=== PATIENT | male | born 1955 ===

== ENCOUNTER 2019-05-23 17:45 | Inpatient (IN) | payer MEDICARE ==
[~2019-05-23] VITALS: Ht 172.7 cm; Wt 72.3 kg
[~2019-05-23 17:45] MED LIST: CEPH500 PO; CYCL10 PO; GLYB2.5 PO; HYDACE5325 PO; INSUGL100V SC; LISI5 PO; MELO7.5 PO; METF500 PO; SIMV40 PO
[2019-05-23 18:44] LABS: BASOPHILS ABSOLUTE AUTO 0.07 K/mm3 (0.00-0.23); BASOPHILS PERCENT AUTO 0 % (0-2); EOSINOPHILS PERCENT AUTO 1 % (0-6); Hematocrit 48.9 % (37.0-53.0); Hemoglobin 15.8 g/dL (13.5-17.5); IMMATURE GRAN ABSOLUTE AUTO 0.09 K/mm3 (0.00-0.10); IMMATURE GRAN PERCENT AUTO 1 % (0-1); LYMPHOCYTES ABSOLUTE AUTO 2.86 K/mm3 (0.84-5.20); LYMPHOCYTES PERCENT AUTO 18 % (21-46); MONOCYTES ABSOLUTE AUTO 1.03 K/mm3 (0.16-1.47); MONOCYTES PERCENT AUTO 7 % (4-13); Mean Corpuscular HGB 26.2 pg (26.0-34.0); Mean Corpuscular HGB Conc 32.3 g/dL (31.5-36.5); Mean Corpuscular Volume 81 fL (80-100); Mean Platelet Volume 9.3 fL (9.1-12.4); NEUTROPHILS ABSOLUTE AUTO 11.48 K/mm3 (1.96-9.15); NEUTROPHILS PERCENT AUTO 73 % (41-73); Platelet Count 351 K/mm3 (150-400); RDW Coefficient Variation 12.3 % (11.7-14.2); RDW Standard Deviation 36.7 fL (35.1-46.3); Red Blood Cell Count 6.03 M/mm3 (4.30-5.90); White Blood Cell Count 15.73 K/mm3 (4.00-11.30)
[2019-05-23 19:07] LABS: Anion Gap 7 mmol/L (6-16); Blood Urea Nitrogen 24 mg/dL (8-24); Bun/Creatinine Ratio 22.6 (12.0-20.0); CO2, Blood 26 mmol/L (21-32); Calcium, Blood 8.8 mg/dL (8.5-10.1); Chloride, Blood 95 mmol/L (98-108); Creatinine, Blood 1.06 mg/dL (0.60-1.20); Glomerular Filtration Rate >60 (60-); Glucose, Blood 592 mg/dL (70-99); Potassium, Blood 4.1 mmol/L (3.5-5.5); Sodium, Blood 128 mmol/L (136-145)
--- NOTE | 2019-05-24 04:00 | NUR ---
CBG SPOT CHECK AT 2359. NO INSULIN GIVEN AT 2100 DUE TO INSULIN COVERAGE IN ER PRIOR TO T/F TO MEDICAL FLOOR.
--- NOTE | 2019-05-24 04:04 | NUR ---
MD CONTACT: LATE ENTRY FOR 05/23/19 @ 1939. CALL PLACED TO HOSPITALIST TO REQUEST STAT ORDER FOR BLOOD CULTURE. ORDER OBTAINED/COMPLETED BY 2400.
--- NOTE | 2019-05-24 05:24 | NUR ---
SHIFT SUMMARY: A/OX4. VSS. AFEB. O2 96% ON RA. SKIN WARM AND DRY. RESPS REG, NON-LABORED. DENIES PAIN. B HANDS SWOLLEN AND ERYTHEMATOUS. L HAND SWOLLEN MORE THAN RIGHT. CHANGED BANDAGE TO LEFT MIDDLE FINGER- PHOTO TAKEN- CONTINUES TO DRAIN MODERATE AMT OF PURULENT DRAINAGE. WOUNDS ON HANDS AND FACE PHOTOGRAPHED WITH PT CONSENT. PT PLEASANT AND COOPERATIVE. MAKING NEEDS KNOWN. SLEEPING INTERMITTENTLY THROUGH THE NIGHT. HANDS BOTH ELEVATED ON PILLOWS. ABT INFUSED ORDERED. BED LOW, CALL BUTTON EXPLAINED AND WITHIN REACH.
[2019-05-24 05:28] LABS: BASOPHILS ABSOLUTE AUTO 0.05 K/mm3 (0.00-0.23); BASOPHILS PERCENT AUTO 0 % (0-2); EOSINOPHILS ABSOLUTE AUTO 0.42 K/mm3 (0.00-0.68); EOSINOPHILS PERCENT AUTO 3 % (0-6); Hematocrit 44.4 % (37.0-53.0); Hemoglobin 14.6 g/dL (13.5-17.5); IMMATURE GRAN ABSOLUTE AUTO 0.11 K/mm3 (0.00-0.10); IMMATURE GRAN PERCENT AUTO 1 % (0-1); LYMPHOCYTES ABSOLUTE AUTO 3.66 K/mm3 (0.84-5.20); LYMPHOCYTES PERCENT AUTO 27 % (21-46); MONOCYTES ABSOLUTE AUTO 0.91 K/mm3 (0.16-1.47); MONOCYTES PERCENT AUTO 7 % (4-13); Mean Corpuscular HGB 26.4 pg (26.0-34.0); Mean Corpuscular HGB Conc 32.9 g/dL (31.5-36.5); Mean Corpuscular Volume 80 fL (80-100); Mean Platelet Volume 9.6 fL (9.1-12.4); NEUTROPHILS ABSOLUTE AUTO 8.29 K/mm3 (1.96-9.15); NEUTROPHILS PERCENT AUTO 62 % (41-73); Platelet Count 348 K/mm3 (150-400); RDW Coefficient Variation 12.4 % (11.7-14.2); RDW Standard Deviation 36.4 fL (35.1-46.3); Red Blood Cell Count 5.52 M/mm3 (4.30-5.90); White Blood Cell Count 13.44 K/mm3 (4.00-11.30)
[2019-05-24 05:48] LABS: Anion Gap 7 mmol/L (6-16); Blood Urea Nitrogen 20 mg/dL (8-24); Bun/Creatinine Ratio 24.4 (12.0-20.0); CO2, Blood 24 mmol/L (21-32); Calcium, Blood 8.1 mg/dL (8.5-10.1); Chloride, Blood 104 mmol/L (98-108); Creatinine, Blood 0.82 mg/dL (0.60-1.20); Glomerular Filtration Rate >60 (60-); Glucose, Blood 288 mg/dL (70-99); Potassium, Blood 3.8 mmol/L (3.5-5.5); Sodium, Blood 135 mmol/L (136-145)
--- NOTE | 2019-05-24 16:34 | NUR ---
PT IS A/OX3, LPLEASANT AND COOPERATIVE, THE PT IS UP WITH MINIMAL ASSIST, THE PT DENIED ANY PAIN SO FAR THIS SHIFT, BATROBAN WAS APPLIED TO THE PTS FACIAL AND HAND SORES, THE PT SLEPT FOR MOST OF THE DAY WAS AWAKE FOR MEALS, HAS A GOOD APPETITE, THE PT APPEARS TO BE BREATHING EASILY ON RA AT THIS TIME, CALL LIGHT IN REACH, POSSIBLE DISCHARGE IN THE AM
--- NOTE | 2019-05-25 04:36 | NUR ---
SHIFT SUMMARY NO ACUTE CHANGES TO REPORT OVERNIGHT. HANDS REMAIN SWOLLEN AND RED WITH BLISTERS, BUT PT DENIES PAIN, SKIN DRY. BACTROBAN HELD PER DOCTOR'S LAST PROGRESS NOTES. PT HAS BEEN UP AND OOB, INDEPENDENT IN THE ROOM. AT BEDSIDE T/O THE NIGHT. IVF INFUSING ORDERED. POSS DC TODAY. WILL CONTINUE TO MONITOR AND REPORT TO ONCOMING RN.
[2019-05-25 08:25] LABS: BASOPHILS ABSOLUTE AUTO 0.05 K/mm3 (0.00-0.23); BASOPHILS PERCENT AUTO 0 % (0-2); EOSINOPHILS ABSOLUTE AUTO 0.35 K/mm3 (0.00-0.68); EOSINOPHILS PERCENT AUTO 3 % (0-6); Hematocrit 45.8 % (37.0-53.0); Hemoglobin 15.2 g/dL (13.5-17.5); IMMATURE GRAN PERCENT AUTO 1 % (0-1); LYMPHOCYTES PERCENT AUTO 20 % (21-46); MONOCYTES ABSOLUTE AUTO 0.84 K/mm3 (0.16-1.47); MONOCYTES PERCENT AUTO 7 % (4-13); Mean Corpuscular HGB 26.2 pg (26.0-34.0); Mean Corpuscular HGB Conc 33.2 g/dL (31.5-36.5); Mean Corpuscular Volume 79 fL (80-100); Mean Platelet Volume 9.2 fL (9.1-12.4); NEUTROPHILS ABSOLUTE AUTO 8.99 K/mm3 (1.96-9.15); NEUTROPHILS PERCENT AUTO 70 % (41-73); Platelet Count 360 K/mm3 (150-400); RDW Coefficient Variation 12.4 % (11.7-14.2); RDW Standard Deviation 35.2 fL (35.1-46.3); White Blood Cell Count 12.93 K/mm3 (4.00-11.30)
[2019-05-25] MEDS ORDERED: ACET325 PO (12:50)
[2019-05-25] MEDS ORDERED: BASAGLAR K100 UNIT/1 SC (12:51)
[2019-05-25] MEDS ORDERED: HUMALOG KW200 UNIT/1 SC (12:53)
[2019-05-25] MEDS ORDERED: Mupirocin22 GM TOP (12:54)
[2019-05-25] MEDS ORDERED: Amoxicillin500 M1 PO (12:56)
[2019-05-25] MEDS ORDERED: LACT PO (12:57)
--- NOTE | 2019-05-25 13:38 | NUR ---
PT DISCHARGED PT VERBALIZED UNDERSTANDING OF THE DC INSTRUCTIONS, THE PTS PERSCRIPTIONS FAXED TO [facility] IN [place], AN ATEMPT TP MAKE AN APPOINTMENT WAS MADE THE PT PCP OFFICE SAID THEY WOULD CALL HIM AT HOME, THE PT APPEARED TO BE BREATHING EASILY ON RA, THE PT WAS TRANSFERED VIA WHEELCHAIR ACCOMPANIED BY THE SUPERVISOR AIRCRAFT CLEANING
== END 2019-05-25 13:30 | disposition home or self-care (01) | DRG 872 ==
LOC: ER 17:45 → MEDS 20:50 → ENPENDDIS 05-25 12:41 → MEDS 05-25 13:30
PROVIDERS: Internal Medicine; Nurse Practitioner Acute Care; Physician Assistant; ADMIT Internal Medicine
PROC: 0H9GXZZ Drainage of Left Hand Skin, External Approach (ICD-10-PCS; principal; 2019-05-23)
DX: A40.0 Sepsis due to streptococcus, group A (principal); L02.512 Cutaneous abscess of left hand; R65.20 Severe sepsis without septic shock; E11.59 Type 2 diabetes mellitus with other circulatory complications; M79.89 Other specified soft tissue disorders; E78.5 Hyperlipidemia, unspecified; I10 Essential (primary) hypertension; E11.40 Type 2 diabetes mellitus with diabetic neuropathy, unspecified; L01.00 Impetigo, unspecified; F17.200 Nicotine dependence, unspecified, uncomplicated; Z91.14 Patient's other noncompliance with medication regimen; Z79.4 Long term (current) use of insulin; Z79.84 Long term (current) use of oral hypoglycemic drugs
CPT/HCPCS: 10060; 36415; 80048; 82947; 83036; 83605; 85025; 87070; 87075; 87147; 87205; 96365-59; 96366-59; 99284-25; J1644; J1815; J2543; J3370; J7030; J7120

== ENCOUNTER 2020-08-16 15:22 | Inpatient (IN) | payer OTHER ==
[~2020-08-16] VITALS: Ht 172.7 cm; Wt 63.0 kg
[~2020-08-16 15:22] MED LIST changes: +ACET325 PO; +Amoxicillin500 M1 PO; +BASAGLAR K100 UNIT/1 SC; +HUMALOG KW200 UNIT/1 SC; +LACT PO; +Mupirocin22 GM TOP
[2020-08-16 16:06] LABS: BASOPHILS ABSOLUTE AUTO 0.05 K/mm3 (0.00-0.23); BASOPHILS PERCENT AUTO 1 % (0-2); EOSINOPHILS PERCENT AUTO 2 % (0-6); Hematocrit 51.3 % (37.0-53.0); Hemoglobin 16.6 g/dL (13.5-17.5); IMMATURE GRAN ABSOLUTE AUTO 0.03 K/mm3 (0.00-0.10); IMMATURE GRAN PERCENT AUTO 0 % (0-1); LYMPHOCYTES ABSOLUTE AUTO 1.93 K/mm3 (0.84-5.20); LYMPHOCYTES PERCENT AUTO 22 % (21-46); MONOCYTES ABSOLUTE AUTO 0.59 K/mm3 (0.16-1.47); MONOCYTES PERCENT AUTO 7 % (4-13); Mean Corpuscular HGB 26.5 pg (26.0-34.0); Mean Corpuscular HGB Conc 32.4 g/dL (31.5-36.5); Mean Corpuscular Volume 82 fL (80-100); Mean Platelet Volume 10.8 fL (9.1-12.4); NEUTROPHILS ABSOLUTE AUTO 6.11 K/mm3 (1.96-9.15); NEUTROPHILS PERCENT AUTO 69 % (41-73); Platelet Count 299 K/mm3 (150-400); RDW Coefficient Variation 12.6 % (11.7-14.2); RDW Standard Deviation 37.2 fL (35.1-46.3); Red Blood Cell Count 6.27 M/mm3 (4.30-5.90); White Blood Cell Count 8.91 K/mm3 (4.00-11.30)
[2020-08-16 16:45] LABS: Alanine Aminotransfer (ALT/SGP 31 U/L (12-78); Albumin, Blood 2.7 g/dL (3.4-5.0); Albumin/Globulin Ratio 0.6 (0.8-1.8); Alk Phos 137 U/L (50-136); Anion Gap 10 mmol/L (6-16); Aspartate Aminotrans (AST/SGOT 38 U/L (12-37); Bilirubin, Total 0.5 mg/dL (0.1-1.0); Blood Urea Nitrogen 14 mg/dL (8-24); Bun/Creatinine Ratio 16.3 (12.0-20.0); CO2, Blood 23 mmol/L (21-32); Chloride, Blood 96 mmol/L (98-108); Creatinine, Blood 0.86 mg/dL (0.60-1.20); Globulin, Blood 4.6 g/dL (2.2-4.0); Glomerular Filtration Rate >60 (60-); Potassium, Blood 5.2 mmol/L (3.5-5.5); Sodium, Blood 129 mmol/L (136-145); Total Protein, Blood 7.3 g/dL (6.4-8.2); Troponin I <0.015 ng/mL (0.000-0.040)
[2020-08-16 16:49] LABS: Base Excess Venous -16.5 mmol/L; Bicarbonate Venous 12.7 mmol/L (24.0-30.0); PCO2 Venous 21.9 mmHg (38-42); PO2 Venous 174 mmHg (38-42); pH Blood Venous 7.28 (7.34-7.37)
[2020-08-16 17:00] LABS: U Amphetamine Screen DETECTED; U Barbituate Screen Not Detected; U Benzodiazapine Screen Not Detected; U Buprenorphine Screen Not Detected; U Cannabinoids Screen Not Detected; U Cocaine Screen Not Detected; U Methadone Screen Not Detected; U Methamphetamine Screen DETECTED; U Opiates Screen DETECTED; U Oxycodone Screen Not Detected; U Phencyclidine Screen Not Detected; U Propoxyphene Screen Not Detected
[2020-08-16 17:43] LABS: Glucose, Blood 465 mg/dL (70-99)
[2020-08-16 23:00] LABS: Influenza A, PCR Negative (NEGATIVE); Influenza B, PCR Negative (NEGATIVE); Resp Syncytial Virus, PCR Negative (NEGATIVE); SARS-Cov-2 (COVID-19) PCR, MMC Negative (NEGATIVE)
--- NOTE | 2020-08-17 03:07 | NUR ---
ADMIT NOTE PATIENT ARRIVED TO THE UNIT APPROX AROUND 2200. PATIENT VERY SLEEPY UPON ARRIVAL TO THE UNIT. PATIENT RESTING IN BED WITH EYES CLOSED. PATIENT DROWSY BUT WILL OPEN EYES SLIGHTLY AND MOAN WHEN TOUCHED OR TALKED TOO, PATIENT DOES NOT RESPOND VERBALLY BUT WILL FOLLOW SOME SIMPLY COMMANDS AT THIS TIME. PATIENT CURRENTLY APPEARS TO BE SLEEPING WELL WITH EVEN AND UNLABORED RESPIRATIONS. PATIENT APPEARS TO BE MOVING SELF ABOUT IN BED.
[2020-08-17 04:24] LABS: BASOPHILS ABSOLUTE AUTO 0.07 K/mm3 (0.00-0.23); BASOPHILS PERCENT AUTO 1 % (0-2); EOSINOPHILS ABSOLUTE AUTO 0.56 K/mm3 (0.00-0.68); EOSINOPHILS PERCENT AUTO 4 % (0-6); Hematocrit 49.1 % (37.0-53.0); Hemoglobin 15.9 g/dL (13.5-17.5); IMMATURE GRAN ABSOLUTE AUTO 0.04 K/mm3 (0.00-0.10); IMMATURE GRAN PERCENT AUTO 0 % (0-1); LYMPHOCYTES ABSOLUTE AUTO 2.57 K/mm3 (0.84-5.20); LYMPHOCYTES PERCENT AUTO 19 % (21-46); MONOCYTES ABSOLUTE AUTO 1.02 K/mm3 (0.16-1.47); MONOCYTES PERCENT AUTO 8 % (4-13); Mean Corpuscular HGB Conc 32.4 g/dL (31.5-36.5); Mean Corpuscular Volume 80 fL (80-100); Mean Platelet Volume 10.3 fL (9.1-12.4); NEUTROPHILS ABSOLUTE AUTO 8.99 K/mm3 (1.96-9.15); NEUTROPHILS PERCENT AUTO 68 % (41-73); Platelet Count 314 K/mm3 (150-400); RDW Coefficient Variation 12.6 % (11.7-14.2); RDW Standard Deviation 36.2 fL (35.1-46.3); Red Blood Cell Count 6.11 M/mm3 (4.30-5.90); White Blood Cell Count 13.25 K/mm3 (4.00-11.30)
[2020-08-17 05:05] LABS: Alanine Aminotransfer (ALT/SGP 28 U/L (12-78); Albumin, Blood 2.5 g/dL (3.4-5.0); Albumin/Globulin Ratio 0.6 (0.8-1.8); Alk Phos 119 U/L (50-136); Anion Gap 6 mmol/L (6-16); Aspartate Aminotrans (AST/SGOT 15 U/L (12-37); Bilirubin, Total 0.5 mg/dL (0.1-1.0); Blood Urea Nitrogen 13 mg/dL (8-24); Bun/Creatinine Ratio 16.5 (12.0-20.0); CO2, Blood 29 mmol/L (21-32); Calcium, Blood 8.4 mg/dL (8.5-10.1); Chloride, Blood 106 mmol/L (98-108); Creatinine, Blood 0.79 mg/dL (0.60-1.20); Globulin, Blood 4.2 g/dL (2.2-4.0); Glomerular Filtration Rate >60 (60-); Glucose, Blood 150 mg/dL (70-99); Potassium, Blood 3.6 mmol/L (3.5-5.5); Sodium, Blood 141 mmol/L (136-145); Total Protein, Blood 6.7 g/dL (6.4-8.2)
--- NOTE | 2020-08-17 07:43 | NUR ---
SHIFT SUMMARY PATIENT CONTINUES TO BE VERY DROWSY BUT WILL AWAKEN AND SLIGHTLY OPEN EYES OR GROAN WHEN TOUCHED. PATIENT HAS BEEN FIDGETING WITH LINES THROUGHOUT THE NIGHT. NO SEIZURES NOTED THROUGHOUT THE NIGHT. PATIENT APPEARS TO BE STAYING AWAKE FOR LONGER PERIODS OF TIME THIS MORNING BUT REMAINS VERY DROWSY. IV FLUIDS RUNNING PER ORDERS. REPORT GIVEN TO ONCOMING RN.
--- NOTE | 2020-08-17 13:51 | NUR ---
DESPITE CONCEALING SOLANO AND MEDICATING PT FOR AGITATION PT HAS REMOVED ATTENDS AND HAS REMOVED HIS STAT LOCK ON SOLANO. PT HAS BLOOD IN URINE WHEN I ASSUMED PT CARE THIS AM, AFTER HE PULLED ON SOLANO HAS MORE BLOOD NOTED IN SOLANO LINE. PT RECIEVED ATIVAN IVP FOR AGITATION. LINES ARE CONCEALED BY RETURNING PANTS TO PT, TUCKING GOWN INTO PANTS, AND REPLACING STAT LOCK
--- NOTE | 2020-08-17 18:35 | NUR ---
SHIFT NOTE PT AGITATED T/O THE DAY. WHEN AWAKE IS VERY AGGRESIVE AND THREATENS STAFF WITH HIS PENIS. PER S/O PT IS AGGRESSIVE AT BASELINE. PT AWAKENS TO VERBAL STIMULI. NS INFUSING. NO SZ ACTIVITY TODAY. PT REMOVED HIS RT HAND IV THIS EVENING WHICH WAS REPLCAED, WHILE REPLACING IV PT BECAME AGGRESIVE, KICKING AND HITTING AT STAFF, IV WAS ESTABLISHED WITHOUT STAFF OR PT INJURY. SOLANO CONTINUES TO DRAIN BLOODY URINE SINCE PULLING ON HIS CATH.
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
--- NOTE | 2020-08-18 03:10 | NUR ---
PATIENT WAS ATTEMPTING TO GET OUT OF BED; FALL RISK; PATIENT ATTEMPTING TO SWING AT STAFF MEMBERS. STAFF ASKED PATIENT FOR FINGER TO GET PULSE OX AND PATIENT PUT MIDDLE FINGER UP.
[2020-08-18 05:00] LABS: BASOPHILS ABSOLUTE AUTO 0.05 K/mm3 (0.00-0.23); BASOPHILS PERCENT AUTO 1 % (0-2); EOSINOPHILS ABSOLUTE AUTO 0.51 K/mm3 (0.00-0.68); EOSINOPHILS PERCENT AUTO 5 % (0-6); Hematocrit 50.3 % (37.0-53.0); Hemoglobin 16.5 g/dL (13.5-17.5); IMMATURE GRAN ABSOLUTE AUTO 0.04 K/mm3 (0.00-0.10); IMMATURE GRAN PERCENT AUTO 0 % (0-1); LYMPHOCYTES ABSOLUTE AUTO 1.92 K/mm3 (0.84-5.20); LYMPHOCYTES PERCENT AUTO 17 % (21-46); MONOCYTES PERCENT AUTO 8 % (4-13); Mean Corpuscular HGB 26.4 pg (26.0-34.0); Mean Corpuscular HGB Conc 32.8 g/dL (31.5-36.5); Mean Corpuscular Volume 80 fL (80-100); Mean Platelet Volume 10.4 fL (9.1-12.4); NEUTROPHILS ABSOLUTE AUTO 7.68 K/mm3 (1.96-9.15); NEUTROPHILS PERCENT AUTO 69 % (41-73); Platelet Count 303 K/mm3 (150-400); RDW Coefficient Variation 12.7 % (11.7-14.2); RDW Standard Deviation 36.4 fL (35.1-46.3); Red Blood Cell Count 6.26 M/mm3 (4.30-5.90)
[2020-08-18 05:23] LABS: Anion Gap 8 mmol/L (6-16); Blood Urea Nitrogen 11 mg/dL (8-24); Bun/Creatinine Ratio 14.4 (12.0-20.0); CO2, Blood 27 mmol/L (21-32); Chloride, Blood 103 mmol/L (98-108); Creatinine, Blood 0.76 mg/dL (0.60-1.20); Glomerular Filtration Rate >60 (60-); Glucose, Blood 128 mg/dL (70-99); Potassium, Blood 3.9 mmol/L (3.5-5.5); Sodium, Blood 138 mmol/L (136-145)
--- NOTE | 2020-08-18 06:29 | NUR ---
PATIENT HAS BEEN RESTING SINCE LAST DOSE OF IV ATIVAN. NO OTHER ACUTE CHANGES TO REPORT.
--- NOTE | 2020-08-18 18:40 | NUR ---
PT SUMMARY: PT HAS BEEN LETHARGIC AND SLEEPING MOST OF THE SHIFT, WAS NOT ABLE TO EAT OR DRINK ANY OF HIS BREAKFAST AND LUNCH, RESPONDS TO VERBAL STIMULI BUT WAS NOT AWAKE ENOUGH TO TAKE ANYTHING P.O., PT BARELY TOOK HIS PO MEDS WAS CRUSHED IN APPLESAUCE BUT WAS ABLE TO SWALLOW SLOWLY. VITALS STABLE, AFEBRILE, REMAINS CONFUSED ATTEMPTED TO GET OUT OF BED AND WAS COMBATIVE AT ONE TIME WHEN CAME IN TO VISIT BUT PT WAS ABLE TO CALM DOWN. BROUGHT IN SNAPPLE JUICE AND PT WAS ABLE TO DRINK ATLEAST A BOTTLE, PT'S CBG WAS UP TO 300 BEFORE DINNER TIME, WAS INFORMED TO NOTIFY INFECTIOUS DISEASE PHYSICIAN/RN BEFORE GIVING PT ANY SWEET JUICES/FOOD, AGREEABLE. NS STARTED AT 75MLS/HR URINE WAS DARK YELLOW THIS AM SINCE PT WAS NOT ABLE TO EAT/DRINK ANYTHING, URINE STARTED GETTING RED PT WAS PULLING ON HIS CATHETER. PT RECIEVED A PARTIAL BED BATH BEFORE THE END OF SHIFT SINCE PT HAD INCONTINENT LARGE BM IN BED. PT WAS ABLE TO FINISH HIS DINNER WHEN HE WAS MORE ALERT AND TALKING THIS EVENING, PT THEN FALLS BACK TO SLEEP AFTER EATING DINNER, PT IS NOW CALM AND RESTING NO SEIZURE EPISODE NOTED FOR THE SHIFT, WILL MONITOR UNTIL END OF SHIFT
--- NOTE | 2020-08-19 04:07 | NUR ---
SHIFT SUMMARY PT HAS BEEN PLESANT AND COOPERATIVE WITH CARE WITH THIS SHIFT. AWAKING BREIFLY TO SHIFT AROUND IN BED, BUT QUICKLY FALLS BACK TO SLEEP. FOLLOWS DIRECTIONS AND ANSWERS MY QUESTIONS APPROPRIATELY. HE HAS BEEN ABLE TO MAKE NEEDS KNOWN. VITALS STABLE. NO ACUTE CHANGES TO REPORT OVERNIGHT. BED IN LOWEST POSITION, CALL LIGHT WITHIN REACH.
[2020-08-19] MEDS ORDERED: Prinivil10 MG PO (09:27)
[2020-08-19] MEDS ORDERED: METF500 PO (09:28)
[2020-08-19] MEDS ORDERED: LEVE500 PO (09:28)
--- NOTE | 2020-08-19 11:59 | NUR ---
PT DISCHARGED TO HOME TODAY WITH DISCHARGE ORDERS. PT ALERT AND ORIENTED AT BASELINE, BLADDER TRAINING WAS DONE THIS AM, CATHETER DC'D, PT WAS WAS ABLE TO VOID IN URINAL PRIOR TO DISCHARGE. PT WAS ABLE TO DRESS HIMSELF UP AND AMBULATE TO WHEELCHAIR FOR TRANSPORT. VITALS HAS BEEN STABLE. DENIES ANY PAIN FOR THE SHIFT. DISCHARGE INSTRUCTIONS DISCLOSED WITH PT, NEW PRESCRIPTION SENT TO [facility] PER PT REQUESTS SINCE [facility] IS CLOSED. FRIEND MICHELE CAME IN TO CARPET LAYER HELPER PT. ALL BELONGINGS SENT WITH PT. PT ACCOMPANIED BY PCT VIA WHEELCHAIR FOR TRANSPORT.
== END 2020-08-19 11:39 | disposition home or self-care (01) | DRG 101 ==
LOC: ER 15:22 → ERHOLD 17:50 → PCU 22:12
PROVIDERS: Emergency Medicine; Physician Assistant; ADMIT Internal Medicine
DX: G40.001 Localization-related (focal) (partial) idiopathic epilepsy and epileptic syndromes with seizures of localized onset, not intractable, with status epilepticus (principal); E87.2 Acidosis; Z79.4 Long term (current) use of insulin; E11.40 Type 2 diabetes mellitus with diabetic neuropathy, unspecified; I10 Essential (primary) hypertension; E11.65 Type 2 diabetes mellitus with hyperglycemia; D72.829 Elevated white blood cell count, unspecified; F15.10 Other stimulant abuse, uncomplicated; Z91.14 Patient's other noncompliance with medication regimen; Z20.822 Contact with and (suspected) exposure to COVID-19
CPT/HCPCS: 0241U; 36415; 51702; 70450; 80048; 80053; 82010; 82550; 82803; 82947; 83605; 84146; 84484; 85025; 87040; 93005; 93010; 95819; 96361-59; 96365-59; 96366-59; 96367-59; 96368; 96375-59; 99285-25; A9270; G0008; G0480; J0696; J1650; J1815; J1953; J2060; J3370; J7030; J7050; Q2038

== ENCOUNTER 2021-07-25 18:34 | Inpatient (IN) | payer MEDICARE ==
[~2021-07-25] VITALS: Ht 172.7 cm; Wt 69.6 kg
[~2021-07-25 18:34] MED LIST changes: +LEVE500 PO; +Prinivil10 MG PO
[2021-07-25 20:29] LABS: BASOPHILS ABSOLUTE AUTO 0.05 K/mm3 (0.00-0.23); BASOPHILS PERCENT AUTO 0 % (0-2); EOSINOPHILS ABSOLUTE AUTO 0.19 K/mm3 (0.00-0.68); EOSINOPHILS PERCENT AUTO 2 % (0-6); Hemoglobin 14.1 g/dL (13.5-17.5); IMMATURE GRAN ABSOLUTE AUTO 0.06 K/mm3 (0.00-0.10); IMMATURE GRAN PERCENT AUTO 1 % (0-1); LYMPHOCYTES ABSOLUTE AUTO 1.77 K/mm3 (0.84-5.20); LYMPHOCYTES PERCENT AUTO 14 % (21-46); MONOCYTES ABSOLUTE AUTO 0.96 K/mm3 (0.16-1.47); MONOCYTES PERCENT AUTO 8 % (4-13); Mean Corpuscular HGB 25.9 pg (26.0-34.0); Mean Corpuscular HGB Conc 32.8 g/dL (31.5-36.5); Mean Corpuscular Volume 79 fL (80-100); Mean Platelet Volume 9.6 fL (9.1-12.4); NEUTROPHILS ABSOLUTE AUTO 9.42 K/mm3 (1.96-9.15); NEUTROPHILS PERCENT AUTO 76 % (41-73); Platelet Count 414 K/mm3 (150-400); RDW Coefficient Variation 12.7 % (11.7-14.2); RDW Standard Deviation 35.9 fL (35.1-46.3); Red Blood Cell Count 5.44 M/mm3 (4.30-5.90); White Blood Cell Count 12.45 K/mm3 (4.00-11.30)
[2021-07-25 21:10] LABS: Albumin, Blood 2.2 g/dL (3.4-5.0); Albumin/Globulin Ratio 0.4 (0.8-1.8); Bilirubin, Total 0.3 mg/dL (0.1-1.0); Calcium, Blood 9.1 mg/dL (8.5-10.1); Creatinine, Blood 1.31 mg/dL (0.60-1.20); Globulin, Blood 5.1 g/dL (2.2-4.0); Potassium, Blood 4.8 mmol/L (3.5-5.5); Total Protein, Blood 7.3 g/dL (6.4-8.2)
[2021-07-26 03:21] LABS: Influenza A, PCR NEGATIVE (NEGATIVE); Influenza B, PCR NEGATIVE (NEGATIVE); Resp Syncytial Virus, PCR NEGATIVE (NEGATIVE); SARS-Cov-2 (COVID-19) PCR, MMC NEGATIVE (NEGATIVE)
[2021-07-26 13:00] LABS: U Amphetamine Screen DETECTED; U Barbituate Screen Not Detected; U Benzodiazapine Screen Not Detected; U Buprenorphine Screen Not Detected; U Cannabinoids Screen Not Detected; U Cocaine Screen Not Detected; U Methadone Screen Not Detected; U Methamphetamine Screen DETECTED; U Opiates Screen Not Detected; U Oxycodone Screen Not Detected; U Phencyclidine Screen Not Detected; U Propoxyphene Screen Not Detected
--- NOTE | 2021-07-26 18:09 | NUR ---
SHIFT SUMMARY PATIENT NEW ADMIT FROM ER. GANGRENE WOUNDS TO BILAT FEET. ORIENTED BUT SLEEPY THROUGHOUT SHIFT. BILAT FEET AND GREAT TOES WITH LARGE OPEN BLISTERS, FEET RED AND SWOLLEN. DR MARKHAM CONSULTED FOR PODIATRY AND DR VILLEGAS FOR VASCULAR. DR VILLEGAS ORDERED DOPPLER AND ART US WITH RESULTS SHOWING GOOD VASCULAR STATUS TO LE AND FEET. DR MARKHAM TOOK PATIENT TO SURGERY FOR AMPUTATION OF LEFT GREAT TOE AT 1800. PATIENT'S SPOUSE WAS PRESENT IN ROOM DURING AFTERNOON. NPO THIS SHIFT, IV FLUIDS AND ABX RUNNING. USING URINAL AT BEDSIDE. DM II WITH CHEMSTICK Q6 HOUR AND INSULIN COVERAGE PER SLIDING SCALE. WILL REPORT TO AIRPLANE FUELER RN.
--- NOTE | 2021-07-26 18:24 | NUR ---
07/26/211823 Ramírez Barnett PATIENT ENTERED OR ON SCHEDULED VANCO, NEXT DOSE DUE LATER THIS EVENING. PER DR. MARTINEZ NO PAS STOCKING DUE TO OPEN SORES ON BILATERAL LEGS.
--- NOTE | 2021-07-26 18:25 | NUR ---
REPORT OFF TO CHEMO SERRANO. BRITNEY
--- NOTE | 2021-07-26 18:26 | NUR ---
ADMIT TO [facility] STARTED REPORT TO CHEMO AT [id number]
--- NOTE | 2021-07-26 20:15 | NUR ---
PATIENT RETURNED TO FLOOR AT 2004. ALERT, EASILY AROUSABLE. VS STABLE. DRESSING CLEAN DRY AND INTACT TO LEFT FOOT. CURRENTLY RESTING PEACEFULLY IN BED. SAFETY MAINTAINED.
[2021-07-27 03:49] LABS: Hematocrit 39.7 % (37.0-53.0); Hemoglobin 12.8 g/dL (13.5-17.5); Mean Corpuscular HGB 25.8 pg (26.0-34.0); Mean Corpuscular HGB Conc 32.2 g/dL (31.5-36.5); Mean Corpuscular Volume 80 fL (80-100); Mean Platelet Volume 9.3 fL (9.1-12.4); Platelet Count 362 K/mm3 (150-400); RDW Coefficient Variation 12.8 % (11.7-14.2); RDW Standard Deviation 36.7 fL (35.1-46.3); Red Blood Cell Count 4.97 M/mm3 (4.30-5.90); White Blood Cell Count 13.93 K/mm3 (4.00-11.30)
[2021-07-27 04:05] LABS: Bun/Creatinine Ratio 17.6 (12.0-20.0); Calcium, Blood 8.6 mg/dL (8.5-10.1); Creatinine, Blood 1.42 mg/dL (0.60-1.20); Potassium, Blood 4.1 mmol/L (3.5-5.5)
--- NOTE | 2021-07-27 05:37 | NUR ---
ALERT AND ORIENTED. FENTANYL 12.5MCG GIVEN X'S 2 DUE TO LEFT FOOT PAIN, EFFECTIVE RELIEF. DRESSING CLEAN DRY AND INTACT TO LEFT FOOT. SLEPT WELL THROUGH NIGHT. SAFETY MAINTAINED, CALL LERNER IN REACH
--- NOTE | 2021-07-27 18:04 | NUR ---
PATIENT CURRENTLY SITTING UP IN CHAIR WITH FEET ELEVATED. NO SIGNS OR SYMPTOMS ACUTE DISTRESS NOTED AT THIS TIME. CALL LIGHT AND WATER IN EASY REACH. ABLE TO MAKE NEEDS AND WANTS KNOWN. DRESSING TO LEFT FOOT CDI. COMPLAINS OF LEFT TOE PAIN, MEDICATED PER ORDERS SEE EMAR. IV ANTIBIOTICS CONTINUE. WILL MONITOR.
[2021-07-28 05:01] LABS: Bun/Creatinine Ratio 15.9 (12.0-20.0); Calcium, Blood 8.6 mg/dL (8.5-10.1); Creatinine, Blood 1.32 mg/dL (0.60-1.20)
--- NOTE | 2021-07-28 05:40 | NUR ---
PATIENT CURRENTLY RESTING IN BED. WHEN ATTEMPTING TO TALK TO PATIENT, HE CONSTANTLY SAYS NO. PATIENT AGITATED WHEN ATTEMPTING TO GET VS, PULLS HAND AWAY. ABLE TO GET VS FROM RADIAL AREA WITHOUT DIFFICULTY. SOLANO IN PLACE, PATENT, IV INTACT TO JOSELUIS. ABDUCTOR WEDGE IN PLACE. SAFETY MAINTAINED.
--- NOTE | 2021-07-28 06:17 | NUR ---
ALERT X'S 3. MEDICATED FOR PAIN MANAGEMENT THROUGH NIGHT, EFFECTIVE. NO ACUTE DISTRESS, RESPIRATIONS EVEN AND UNALBORED. DRESSING INTACT TO LEFT FOOT. SLEPT WELL THROUGH NIGHT, SAFETY MAINTAINED.
--- NOTE | 2021-07-28 15:45 | NUR ---
CALL TO DR. BISHOP DAVIS AND MD STATES TO CHANGE DRSG. PRIOR TO DC, LEAVE FELICIANO DRAIN IN, AND ACCESS FOR PUS, DRAINAGE. DRSG. CHANGE DONE, PT. TOLERATE WELL. FELICIANO DRAIN INTACT, NO FRESH DRAINAGE OR PUS NOTED, OLD DRY SEROUSANG. NEW DRSG. APPLIED, ABD, 4X4,KERLEX AND AUBREY WRAP. DR. PAYTON IN TO SEE PT.
--- NOTE | 2021-07-28 16:14 | NUR ---
PATIENT DISCHARGED TO HOME AT THIS TIME. IS HERE TO TAKE PT. HOME. REVIEWED AND EXPLAINED DC INSTRUCTIONS TO PATIENT AND , BOTH VERBALIZE UNDERSTANDING OF IMPORTANCE IN TAKING METFORMIN, NON WT. BEARING STATUS OF LEFT FOOT, AND FOLLOW UP WITH WOUND CARE AND VP OF GLOBAL MARKETING IMMEDIATELY TO MAKE APPT.-PRESCRIPTIONS CALLED TO PT. PHARMACY IN [place] AND HARD COPY OF PAIN MED SCRIPT GIVEN TO . DISCUSSED NON WT. BEARING AND MOBILITIY STATUS, FEELS SECURE AND COMFORTABLE TAKING PT. HOME "OUR SPACE IS SMALL AND I WILL GET HIM A WALKER" GAIT BELT GIVEN. PATIENT STATES COMFORT IN GOING HOME AND VERBALIZE UNDERSTANDING OF DC INSTRUCTIONS. W/C TO EXIT WITH PERSONAL BELONGINGS AND COPY OF DC INSTRUCTIONS. IV LEFT WRIST REMOVED.
== END 2021-07-28 16:28 | disposition home or self-care (01) | DRG 255 ==
LOC: ER 18:34 → ERHOLD 07-26 03:01 → SURS 07-26 03:01
PROVIDERS: Emergency Medicine; Family Medicine; Internal Medicine; Physician Assistant; Podiatrist Foot & Ankle Surgery; ADMIT Internal Medicine
PROC: 0Y6Q0Z3 Detachment at Left 1st Toe, Low, Open Approach (ICD-10-PCS; principal; 2021-07-26 16:50)
DX: E11.52 Type 2 diabetes mellitus with diabetic peripheral angiopathy with gangrene (principal); A48.0 Gas gangrene; N17.9 Acute kidney failure, unspecified; E11.42 Type 2 diabetes mellitus with diabetic polyneuropathy; I10 Essential (primary) hypertension; F17.210 Nicotine dependence, cigarettes, uncomplicated; Z20.822 Contact with and (suspected) exposure to COVID-19; E78.5 Hyperlipidemia, unspecified; F15.10 Other stimulant abuse, uncomplicated; Z90.89 Acquired absence of other organs; Z98.52 Vasectomy status; Z91.14 Patient's other noncompliance with medication regimen; Z79.84 Long term (current) use of oral hypoglycemic drugs; Z79.899 Other long term (current) drug therapy
CPT/HCPCS: 0241U; 36415; 73700; 80048; 80053; 82947; 83605; 83880; 84145; 85025; 85027; 87040; 87086; 88305; 90471; 90686; 90714; 93005; 93010; 93922; 96365; 96372; 96375; 99285-25; A9270; J1644; J1815; J2405; J2543; J2704; J3010; J3370; J7030; J7120

== ENCOUNTER 2021-08-02 06:07 | Day surgery (SDC) | payer MEDICARE | END 2021-08-02 23:40 | disposition home or self-care (01) | LOC: WOUND 06:07 | DX: E11.621 Type 2 diabetes mellitus with foot ulcer (principal); L97.529 Non-pressure chronic ulcer of other part of left foot with unspecified severity; L97.522 Non-pressure chronic ulcer of other part of left foot with fat layer exposed; L97.519 Non-pressure chronic ulcer of other part of right foot with unspecified severity; F17.210 Nicotine dependence, cigarettes, uncomplicated; E11.52 Type 2 diabetes mellitus with diabetic peripheral angiopathy with gangrene; S98.112A Complete traumatic amputation of left great toe, initial encounter; F15.20 Other stimulant dependence, uncomplicated; I70.261 Atherosclerosis of native arteries of extremities with gangrene, right leg; X58.XXXA Exposure to other specified factors, initial encounter | CPT/HCPCS: G0463 ==

== ENCOUNTER 2021-08-09 05:18 | Day surgery (SDC) | payer MEDICARE | END 2021-08-09 12:00 | disposition home or self-care (01) | LOC: WOUND 05:18 | DX: E11.621 Type 2 diabetes mellitus with foot ulcer (principal); L97.528 Non-pressure chronic ulcer of other part of left foot with other specified severity; L97.518 Non-pressure chronic ulcer of other part of right foot with other specified severity; E11.52 Type 2 diabetes mellitus with diabetic peripheral angiopathy with gangrene; S98.112D Complete traumatic amputation of left great toe, subsequent encounter; F15.20 Other stimulant dependence, uncomplicated; I70.261 Atherosclerosis of native arteries of extremities with gangrene, right leg; E11.40 Type 2 diabetes mellitus with diabetic neuropathy, unspecified; F17.210 Nicotine dependence, cigarettes, uncomplicated | CPT/HCPCS: A9270; G0463 ==

== ENCOUNTER 2021-08-14 01:28 | Day surgery (SDC) | payer MEDICARE | END 2021-08-14 23:02 | disposition home or self-care (01) | LOC: WOUND 01:28 | DX: E11.621 Type 2 diabetes mellitus with foot ulcer (principal); L97.529 Non-pressure chronic ulcer of other part of left foot with unspecified severity; L97.519 Non-pressure chronic ulcer of other part of right foot with unspecified severity; T87.89 Other complications of amputation stump; Y83.8 Other surgical procedures as the cause of abnormal reaction of the patient, or of later complication, without mention of misadventure at the time of the procedure; E11.52 Type 2 diabetes mellitus with diabetic peripheral angiopathy with gangrene; I70.261 Atherosclerosis of native arteries of extremities with gangrene, right leg | CPT/HCPCS: A9270; G0463 ==

== ENCOUNTER 2021-08-28 01:04 | Day surgery (SDC) | payer MEDICARE | END 2021-08-28 23:30 | disposition home or self-care (01) | LOC: WOUND 01:04 | DX: E11.621 Type 2 diabetes mellitus with foot ulcer (principal); L97.529 Non-pressure chronic ulcer of other part of left foot with unspecified severity; L97.519 Non-pressure chronic ulcer of other part of right foot with unspecified severity; E11.52 Type 2 diabetes mellitus with diabetic peripheral angiopathy with gangrene; I70.261 Atherosclerosis of native arteries of extremities with gangrene, right leg; S98.112D Complete traumatic amputation of left great toe, subsequent encounter; F15.20 Other stimulant dependence, uncomplicated; E11.40 Type 2 diabetes mellitus with diabetic neuropathy, unspecified; F17.210 Nicotine dependence, cigarettes, uncomplicated | CPT/HCPCS: G0463 ==

== ENCOUNTER 2021-09-11 01:06 | Day surgery (SDC) | payer MEDICARE | END 2021-09-11 22:42 | disposition home or self-care (01) | LOC: WOUND 01:06 | DX: E11.621 Type 2 diabetes mellitus with foot ulcer (principal); L97.522 Non-pressure chronic ulcer of other part of left foot with fat layer exposed; L97.512 Non-pressure chronic ulcer of other part of right foot with fat layer exposed; F17.210 Nicotine dependence, cigarettes, uncomplicated; E11.52 Type 2 diabetes mellitus with diabetic peripheral angiopathy with gangrene; S98.112A Complete traumatic amputation of left great toe, initial encounter; F12.20 Cannabis dependence, uncomplicated; I70.261 Atherosclerosis of native arteries of extremities with gangrene, right leg ==

== ENCOUNTER 2021-09-18 06:41 | Day surgery (SDC) | payer MEDICARE ==
[~2021-09-18] VITALS: Ht 172.7 cm; Wt 68.0 kg
[2021-09-18] MEDS ORDERED: GLIP5 PO (06:58)
--- NOTE | 2021-09-18 09:55 | NUR ---
PT BACK FROM PROCEDURE ROOM. PT LAYING FLAT IN BED WITH EYES CLOSED AND SNORING RESPIRATIONS. PT WITH L FEM ACCESS WITH SUCCESSFUL ANGIOSEAL IN PLACE. NO BLEEDING, OOZING OR HEMATOMA NOTED. VSS. WILL CONTINUE TO MONITOR.
--- NOTE | 2021-09-18 12:08 | NUR ---
PT EATING LUNCH WITH HELP FROM FRIEND. NO BLEEDING OOZING OR HEMATOMA NOTED FROM R FEM SITE. VSS. PT SAT UP IN BED AND WILL PLAN TO DC IF NO BLEEDING, OCCURS.
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
== END 2021-09-18 12:45 | disposition home or self-care (01) ==
LOC: MHTC 06:41
DX: E08.42 Diabetes mellitus due to underlying condition with diabetic polyneuropathy (principal); I70.213 Atherosclerosis of native arteries of extremities with intermittent claudication, bilateral legs
CPT/HCPCS: 76937; 85347; 99152; 99153; C1725; C1760; C1769; C1885; C1887; C1894; J1644; J2250; J3010; J7030; J7050; Q9967

== ENCOUNTER 2021-09-20 01:16 | Day surgery (SDC) | payer MEDICARE ==
[~2021-09-20 01:16] MED LIST changes: +GLIP5 PO
== END 2021-09-20 22:45 | disposition home or self-care (01) ==
LOC: WOUND 01:16
DX: E11.621 Type 2 diabetes mellitus with foot ulcer (principal); L97.529 Non-pressure chronic ulcer of other part of left foot with unspecified severity; L97.519 Non-pressure chronic ulcer of other part of right foot with unspecified severity; T87.89 Other complications of amputation stump; E11.40 Type 2 diabetes mellitus with diabetic neuropathy, unspecified; F17.210 Nicotine dependence, cigarettes, uncomplicated; E11.51 Type 2 diabetes mellitus with diabetic peripheral angiopathy without gangrene; I70.261 Atherosclerosis of native arteries of extremities with gangrene, right leg; F15.20 Other stimulant dependence, uncomplicated; Y83.8 Other surgical procedures as the cause of abnormal reaction of the patient, or of later complication, without mention of misadventure at the time of the procedure
CPT/HCPCS: G0463

== ENCOUNTER 2021-10-04 02:39 | Day surgery (SDC) | payer MEDICARE ==
[2021-10-09] MEDS ORDERED: CLOP75 PO (10:49)
[2021-10-09] MEDS ORDERED: XARELTO2.5 M1 PO (10:50)
[2021-11-25] MEDS ORDERED: CLOP75 PO (06:27)
[2021-11-25] MEDS ORDERED: ATOR40TA PO (06:27)
== END 2021-10-04 23:14 | disposition home or self-care (01) ==
LOC: WOUND 02:39
DX: E11.621 Type 2 diabetes mellitus with foot ulcer (principal); L97.522 Non-pressure chronic ulcer of other part of left foot with fat layer exposed; L97.519 Non-pressure chronic ulcer of other part of right foot with unspecified severity; E11.52 Type 2 diabetes mellitus with diabetic peripheral angiopathy with gangrene; I96 Gangrene, not elsewhere classified; E11.40 Type 2 diabetes mellitus with diabetic neuropathy, unspecified; Z89.412 Acquired absence of left great toe
CPT/HCPCS: U0003

== ENCOUNTER 2021-10-11 03:07 | Day surgery (SDC) | payer MEDICARE ==
[~2021-10-11 03:07] MED LIST changes: +CLOP75 PO; +XARELTO2.5 M1 PO
== END 2021-10-11 22:49 | disposition home or self-care (01) ==
LOC: WOUND 03:07
DX: E11.621 Type 2 diabetes mellitus with foot ulcer (principal); L97.526 Non-pressure chronic ulcer of other part of left foot with bone involvement without evidence of necrosis; E11.52 Type 2 diabetes mellitus with diabetic peripheral angiopathy with gangrene; I96 Gangrene, not elsewhere classified; E11.40 Type 2 diabetes mellitus with diabetic neuropathy, unspecified
CPT/HCPCS: G0463

== ENCOUNTER 2021-10-18 01:47 | Day surgery (SDC) | payer MEDICARE | END 2021-10-18 22:49 | disposition home or self-care (01) | LOC: WOUND 01:47 | DX: E11.621 Type 2 diabetes mellitus with foot ulcer (principal); L97.526 Non-pressure chronic ulcer of other part of left foot with bone involvement without evidence of necrosis; L97.518 Non-pressure chronic ulcer of other part of right foot with other specified severity; E11.52 Type 2 diabetes mellitus with diabetic peripheral angiopathy with gangrene; I96 Gangrene, not elsewhere classified; Z89.422 Acquired absence of other left toe(s) | CPT/HCPCS: A9270; G0463 ==

== ENCOUNTER 2021-10-28 10:58 | Day surgery (SDC) | payer MEDICARE ==
[~2021-10-28] VITALS: Ht 172.7 cm; Wt 66.0 kg
--- NOTE | 2021-10-28 14:27 | NUR ---
PATIENT RETURNED FROM THE CATHLAB. PATEINT PLACED ON THE MONITOR AND SBAR RECEIVED FROM BRITNEY COREAS AND OCTOBER, RT. RIGHT GROIN CHECKED. ANGIOSEAL. DRESSING CDI. DOPPLER PULSES NOTED. LEFT FOOT WITH PURPLE TONE TO THE UPPER TOE PORTION OF THE FOOT. WILL CONTINUE TO MONITOR.
--- NOTE | 2021-10-28 15:03 | NUR ---
PATIENT WAKING UP MORE AND TEXTING GIRLFRINED.
--- NOTE | 2021-10-28 15:08 | NUR ---
GIRLFRIEND AT THE BEDSIDE. LUNCH SERVED. PATIENT MORE AWAKE. VVS. PAIN NOTED TO TEJA LEFT FOOT. UPDATE GIRLFRIEND THAT ADDITIONAL PROCEDURE WILL BE REQUIRED AND THAT THIS WILL BE SCHEDULED THROUGH DR. APONTE OFFICE.
--- NOTE | 2021-10-28 16:22 | NUR ---
PATIENT UP OFF THE MONITOR, HAMMER SHOP SUPERVISOR HERE. PATIENTPIV REMOVED AND CATH TIP INTACT. PRESSURE DRESSING APPLIED. RIGHT GROIN SITE STABLE WITH ANGIOSEAL IN PLACE AND CHG TEGADERM IN PLACE. PATEINT DRESSING SELF. LEFT FOOT REDRESSED WITH TELFA AND GAUZE. TWO SOCKS LOOSELY PLACE (NO SHOE TO THAT FOOT). REVIEWED DISCHARGE INSTRUCTIONS WITH THE PATIENT AND THE FAMILY MEMBER. ALL QUESTIONS ANSWERED.
--- NOTE | 2021-10-28 16:32 | NUR ---
PATEINT DISCAHRGED HOME VIA WHEELCHAIR WITH NUT GRINDER.
== END 2021-10-28 16:59 | disposition home or self-care (01) ==
LOC: MHTC 10:58
DX: E11.51 Type 2 diabetes mellitus with diabetic peripheral angiopathy without gangrene (principal); I70.245 Atherosclerosis of native arteries of left leg with ulceration of other part of foot; E11.621 Type 2 diabetes mellitus with foot ulcer; L97.522 Non-pressure chronic ulcer of other part of left foot with fat layer exposed; I10 Essential (primary) hypertension; F17.210 Nicotine dependence, cigarettes, uncomplicated; Z89.412 Acquired absence of left great toe; Z86.73 Personal history of transient ischemic attack (TIA), and cerebral infarction without residual deficits
CPT/HCPCS: 75625; 75716; 75774; 76937; 85347; 99152; 99153; C1725; C1760; C1769; C1887; C1894; C9772; J1644; J2250; J3010; J7030; J7050; Q9967

== ENCOUNTER 2021-11-11 01:21 | Day surgery (SDC) | payer MEDICARE | END 2021-11-11 23:04 | disposition home or self-care (01) | LOC: WOUND 01:21 | DX: E11.621 Type 2 diabetes mellitus with foot ulcer (principal); L97.526 Non-pressure chronic ulcer of other part of left foot with bone involvement without evidence of necrosis; E11.52 Type 2 diabetes mellitus with diabetic peripheral angiopathy with gangrene; E11.40 Type 2 diabetes mellitus with diabetic neuropathy, unspecified; Z89.412 Acquired absence of left great toe | CPT/HCPCS: G0463 ==

== ENCOUNTER 2021-11-22 00:28 | Day surgery (SDC) | payer MEDICARE ==
[2021-11-25] MEDS ORDERED: ATOR40TA PO (06:27)
[2021-11-25] MEDS ORDERED: CLOP75 PO (06:27)
== END 2021-11-22 22:49 | disposition home or self-care (01) ==
LOC: WOUND 00:28
DX: E11.621 Type 2 diabetes mellitus with foot ulcer (principal); L97.526 Non-pressure chronic ulcer of other part of left foot with bone involvement without evidence of necrosis; E11.52 Type 2 diabetes mellitus with diabetic peripheral angiopathy with gangrene; E11.40 Type 2 diabetes mellitus with diabetic neuropathy, unspecified
CPT/HCPCS: G0463

== ENCOUNTER 2021-12-06 01:12 | Day surgery (SDC) | payer MEDICARE ==
[~2021-12-06 01:12] MED LIST changes: +ATOR40TA PO
== END 2021-12-06 22:47 | disposition home or self-care (01) ==
LOC: WOUND 01:12
DX: T87.89 Other complications of amputation stump (principal); E11.621 Type 2 diabetes mellitus with foot ulcer; L97.529 Non-pressure chronic ulcer of other part of left foot with unspecified severity; Y83.8 Other surgical procedures as the cause of abnormal reaction of the patient, or of later complication, without mention of misadventure at the time of the procedure; E11.52 Type 2 diabetes mellitus with diabetic peripheral angiopathy with gangrene; E11.40 Type 2 diabetes mellitus with diabetic neuropathy, unspecified
CPT/HCPCS: 99406; G0463

== ENCOUNTER 2021-12-13 05:24 | Day surgery (SDC) | payer MEDICARE | END 2021-12-13 22:38 | disposition home or self-care (01) | LOC: WOUND 05:24 | DX: E11.621 Type 2 diabetes mellitus with foot ulcer (principal); L97.522 Non-pressure chronic ulcer of other part of left foot with fat layer exposed; E11.52 Type 2 diabetes mellitus with diabetic peripheral angiopathy with gangrene; I96 Gangrene, not elsewhere classified; E11.40 Type 2 diabetes mellitus with diabetic neuropathy, unspecified | CPT/HCPCS: G0463 ==

== ENCOUNTER 2021-12-20 03:34 | Day surgery (SDC) | payer MEDICARE | END 2021-12-20 23:13 | disposition home or self-care (01) | LOC: WOUND 03:34 | DX: T87.89 Other complications of amputation stump (principal); E11.621 Type 2 diabetes mellitus with foot ulcer; L97.522 Non-pressure chronic ulcer of other part of left foot with fat layer exposed; Y83.8 Other surgical procedures as the cause of abnormal reaction of the patient, or of later complication, without mention of misadventure at the time of the procedure; F17.210 Nicotine dependence, cigarettes, uncomplicated; E11.40 Type 2 diabetes mellitus with diabetic neuropathy, unspecified; E11.52 Type 2 diabetes mellitus with diabetic peripheral angiopathy with gangrene | CPT/HCPCS: 99406; G0463 ==

== ENCOUNTER 2021-12-27 08:00 | Day surgery (SDC) | payer MEDICARE | END 2021-12-27 23:59 | disposition home or self-care (01) | LOC: WOUND 08:00 | DX: E11.621 Type 2 diabetes mellitus with foot ulcer (principal); L97.522 Non-pressure chronic ulcer of other part of left foot with fat layer exposed; E11.52 Type 2 diabetes mellitus with diabetic peripheral angiopathy with gangrene; E11.40 Type 2 diabetes mellitus with diabetic neuropathy, unspecified; F17.210 Nicotine dependence, cigarettes, uncomplicated | CPT/HCPCS: 99406; G0463 ==

== ENCOUNTER 2022-01-03 01:37 | Day surgery (SDC) | payer MEDICARE | END 2022-01-03 22:53 | disposition home or self-care (01) | LOC: WOUND 01:37 | DX: E11.621 Type 2 diabetes mellitus with foot ulcer (principal); L97.522 Non-pressure chronic ulcer of other part of left foot with fat layer exposed; E11.52 Type 2 diabetes mellitus with diabetic peripheral angiopathy with gangrene; E11.40 Type 2 diabetes mellitus with diabetic neuropathy, unspecified; F17.210 Nicotine dependence, cigarettes, uncomplicated | CPT/HCPCS: G0463 ==

== ENCOUNTER 2022-01-27 00:39 | Day surgery (SDC) | payer MEDICARE | END 2022-01-27 23:00 | disposition home or self-care (01) | LOC: WOUND 00:39 | DX: T87.89 Other complications of amputation stump (principal); Y83.8 Other surgical procedures as the cause of abnormal reaction of the patient, or of later complication, without mention of misadventure at the time of the procedure; E11.621 Type 2 diabetes mellitus with foot ulcer; L97.522 Non-pressure chronic ulcer of other part of left foot with fat layer exposed; E11.52 Type 2 diabetes mellitus with diabetic peripheral angiopathy with gangrene; E11.40 Type 2 diabetes mellitus with diabetic neuropathy, unspecified; Z72.0 Tobacco use | CPT/HCPCS: G0463 ==

== ENCOUNTER 2022-02-10 05:40 | Day surgery (SDC) | payer MEDICARE | END 2022-02-10 23:22 | disposition home or self-care (01) | LOC: WOUND 05:40 | DX: E11.621 Type 2 diabetes mellitus with foot ulcer (principal); L97.522 Non-pressure chronic ulcer of other part of left foot with fat layer exposed; E11.52 Type 2 diabetes mellitus with diabetic peripheral angiopathy with gangrene; E11.40 Type 2 diabetes mellitus with diabetic neuropathy, unspecified; Z72.0 Tobacco use | CPT/HCPCS: G0463 ==

== ENCOUNTER 2022-09-01 00:31 | Observation (INO) | payer MEDICARE ==
[~2022-09-01] VITALS: Ht 172.7 cm; Wt 79.1 kg
[~2022-09-01 00:31] MED LIST changes: +ASPI81CH PO; +GLUCOPHAGE1000 M1 PO; +METO25ER PO; +MIRT30 PO
[2022-09-01 01:28] LABS: BASOPHILS ABSOLUTE AUTO 0.03 K/mm3 (0.00-0.23); BASOPHILS PERCENT AUTO 1 % (0-2); EOSINOPHILS ABSOLUTE AUTO 0.16 K/mm3 (0.00-0.68); EOSINOPHILS PERCENT AUTO 3 % (0-6); Hematocrit 40.3 % (37.0-53.0); Hemoglobin 12.8 g/dL (13.5-17.5); IMMATURE GRAN ABSOLUTE AUTO 0.02 K/mm3 (0.00-0.10); IMMATURE GRAN PERCENT AUTO 0 % (0-1); LYMPHOCYTES PERCENT AUTO 11 % (21-46); MONOCYTES PERCENT AUTO 9 % (4-13); Mean Corpuscular HGB 25.6 pg (26.0-34.0); Mean Corpuscular HGB Conc 31.8 g/dL (31.5-36.5); Mean Corpuscular Volume 81 fL (80-100); Mean Platelet Volume 9.5 fL (9.1-12.4); NEUTROPHILS ABSOLUTE AUTO 4.12 K/mm3 (1.96-9.15); NEUTROPHILS PERCENT AUTO 76 % (41-73); Platelet Count 247 K/mm3 (150-400); RDW Coefficient Variation 18.1 % (11.7-14.2); RDW Standard Deviation 51.9 fL (35.1-46.3); White Blood Cell Count 5.43 K/mm3 (4.00-11.30)
[2022-09-01 01:28] LABS: Base Excess Venous -3.2 mmol/L; Bicarbonate Venous 21.3 mmol/L (24.0-30.0); PCO2 Venous 48.9 mmHg (38-42); pH Blood Venous 7.28 (7.34-7.37)
[2022-09-01 01:50] LABS: Ethanol (Alcohol), Blood, Med <3 mg/dL
[2022-09-01 02:00] LABS: Alanine Aminotransfer (ALT/SGP 42 U/L (12-78); Albumin, Blood 2.4 g/dL (3.4-5.0); Albumin/Globulin Ratio 0.4 (0.8-1.8); Alk Phos 229 U/L (50-136); Anion Gap 4 mmol/L (6-16); Aspartate Aminotrans (AST/SGOT 72 U/L (12-37); Bilirubin, Total 0.6 mg/dL (0.1-1.0); Blood Urea Nitrogen 37 mg/dL (8-24); Bun/Creatinine Ratio 30.6 (12.0-20.0); CO2, Blood 23 mmol/L (21-32); Calcium, Blood 8.9 mg/dL (8.5-10.1); Chloride, Blood 112 mmol/L (98-108); Creatinine, Blood 1.21 mg/dL (0.60-1.20); Globulin, Blood 5.4 g/dL (2.2-4.0); Glomerular Filtration Rate 66 (60-); Glucose, Blood 100 mg/dL (70-99); Potassium, Blood 4.4 mmol/L (3.5-5.5); Sodium, Blood 139 mmol/L (136-145); Total Protein, Blood 7.8 g/dL (6.4-8.2)
[2022-09-01] MEDS ORDERED: GLIP5 PO (03:43)
--- NOTE | 2022-09-01 07:40 | NUR ---
PT CONFUSED, UNCLEAR SPEECH, ISOLATION FOR FULL BODY RASH, LICE. SKIN CHECK DONE WITH EVELIN SPIVEY RN. PICTURES IN CHART OF BLE WOUNDS. VANCOMYCIN STARTED AT 0600. DID NOT COMPLETE ALL OF ADMISSION, PERFORMED ASSESSMENT. EDEMATOUS BLE AND BUE. FOLLOWS COMMANDS, UNSTEADY GAIT WHEN TRANSFERRED TO BED ON ADMISSION. R AC PIV FLUSHES WELL BUT PATIENT BENDS ARM FREQUENTLY. BED ALARM ON, FREQUENT ROUNDING.
[2022-09-01 11:34] LABS: Source, Urine Clean Catch
[2022-09-01 12:11] LABS: Appearance, Urine Clear (Clear); Bilirubin, Urine Neg (Neg); Blood, Urine 1+ (Neg); Color, Urine Yellow (P-Yellow); Glucose Qualitative, Urine Neg (Neg); Ketones, Urine Neg (Neg); Leukocyte Esterase, Urine Neg (Neg); Nitrite, Urine Neg (Neg); Protein, Urine 4+ (Neg); Specific Gravity, Urine 1.025 (1.003-1.022); Urobilinogen, Urine NORM (Normal)
[2022-09-01 12:37] LABS: U Amphetamine Screen DETECTED; U Barbituate Screen Not Detected; U Benzodiazapine Screen Not Detected; U Buprenorphine Screen Not Detected; U Cannabinoids Screen Not Detected; U Cocaine Screen Not Detected; U Methadone Screen Not Detected; U Methamphetamine Screen DETECTED; U Opiates Screen Not Detected; U Oxycodone Screen Not Detected; U Phencyclidine Screen Not Detected; U Propoxyphene Screen Not Detected
[2022-09-01 13:39] LABS: Amorphous Casts 0-2 /lpf (0); Bacteria Few /hpf; Squamous Epithelial Cells Few /hpf (Few); White Blood Cells, Urine 0-2 /hpf (0-5)
--- NOTE | 2022-09-01 18:56 | NUR ---
SUMMARY- PT ALERT TO SELF AND PLACE. VERY GARBLED SPEECH. SLEPT MOST OF THE DAY. AWAKENS WITH A START. TOLERATING FOOD AND FLUIDS, HAS A BIG APPETITE. TAKES IN FLUIDS GREAT. HAD NIX SHOWER SHAMPOO FOR LICE AND PERMETHRIN LOTION FOR SKIN RASH POSSIBLE SCABIES. COMBED HAIR THOROUGHLY WITH FINE TOOTH COMB AND GOT RID OF NITS AND LARVA. BLOOD SUGARS CHECKED AC AND STAYING 90-120/ STEP STAYED IN ROOM MOST OF THE DAY WITH PT, SUPPORTIVE IN CARE.
--- NOTE | 2022-09-02 05:59 | NUR ---
CONFUSION, SLURRED SPEECH CONTINUE. SOMETIMES ANSWERS QUESTIONS APPROPRIATELY. FOLLOWS DIRECTIONS. POOR PO INTAKE. 300 MLS VOIDED IN URINAL WITH ASSIST. VERY UNSTEADY GAIT, X2 ASSIST TO TRANSFER. CONTACT ISOLATION MAINTAINED. VSS. PLEASANT. ENCOURAGED PO FLUIDS. RESTLESS AT TIMES BETWEEN SLEEPING. NO SIGNIFICANT CHANGES NOTED.
[2022-09-02 08:10] LABS: HIV AB/P24 AG SCREEN Non Reactive (Non Reactive)
[2022-09-02 10:15] LABS: BASOPHILS ABSOLUTE AUTO 0.02 K/mm3 (0.00-0.23); BASOPHILS PERCENT AUTO 0 % (0-2); EOSINOPHILS PERCENT AUTO 2 % (0-6); Hematocrit 40.7 % (37.0-53.0); Hemoglobin 12.6 g/dL (13.5-17.5); IMMATURE GRAN ABSOLUTE AUTO 0.01 K/mm3 (0.00-0.10); IMMATURE GRAN PERCENT AUTO 0 % (0-1); LYMPHOCYTES ABSOLUTE AUTO 0.65 K/mm3 (0.84-5.20); LYMPHOCYTES PERCENT AUTO 11 % (21-46); MONOCYTES ABSOLUTE AUTO 0.71 K/mm3 (0.16-1.47); MONOCYTES PERCENT AUTO 12 % (4-13); Mean Corpuscular HGB 25.1 pg (26.0-34.0); Mean Corpuscular Volume 81 fL (80-100); Mean Platelet Volume 10.1 fL (9.1-12.4); NEUTROPHILS ABSOLUTE AUTO 4.42 K/mm3 (1.96-9.15); NEUTROPHILS PERCENT AUTO 75 % (41-73); Platelet Count 220 K/mm3 (150-400); RDW Coefficient Variation 18.6 % (11.7-14.2); RDW Standard Deviation 53.4 fL (35.1-46.3); Red Blood Cell Count 5.01 M/mm3 (4.30-5.90); White Blood Cell Count 5.91 K/mm3 (4.00-11.30)
[2022-09-02 10:42] LABS: Albumin/Globulin Ratio 0.4 (0.8-1.8); Bilirubin, Total 0.6 mg/dL (0.1-1.0); Bun/Creatinine Ratio 29.2 (12.0-20.0); Calcium, Blood 8.4 mg/dL (8.5-10.1); Creatinine, Blood 1.37 mg/dL (0.60-1.20); Globulin, Blood 5.2 g/dL (2.2-4.0); Potassium, Blood 4.5 mmol/L (3.5-5.5); Total Protein, Blood 7.2 g/dL (6.4-8.2)
[2022-09-02 16:06] LABS: Vancomycin, Trough 28.4 ug/mL (5.0-10.0)
--- NOTE | 2022-09-02 18:57 | NUR ---
SUMMARY- PT ALERT TO SELF AND PLACE AND FAMILY. GARBLED SPEECH. TOLERATING FOOD AND FLUIDS. GETTING ABX FOR R FOOT, TOE INFECTION. DR MARKHAM CAME TO EVAL PT AGAIN TODAY. TALKING ABOUT COMPLETING IV ABX AND LIKELY AMPUTATE TOE NEXT WEEK EITHER IN HOSP OR HIS OFFICE. NEED TO CLEAR LICE AND SCABIES. DRESSING TO R 5TH METATARCIL, CLEANSED WITH H2O2, BETADINE, XEREFORM, COBAN. REPORTED TO NOC BRITNEY ORTIZ
[2022-09-03 06:45] LABS: BASOPHILS ABSOLUTE AUTO 0.04 K/mm3 (0.00-0.23); BASOPHILS PERCENT AUTO 1 % (0-2); EOSINOPHILS ABSOLUTE AUTO 0.16 K/mm3 (0.00-0.68); EOSINOPHILS PERCENT AUTO 2 % (0-6); Hematocrit 42.1 % (37.0-53.0); Hemoglobin 12.8 g/dL (13.5-17.5); IMMATURE GRAN ABSOLUTE AUTO 0.01 K/mm3 (0.00-0.10); IMMATURE GRAN PERCENT AUTO 0 % (0-1); LYMPHOCYTES ABSOLUTE AUTO 0.71 K/mm3 (0.84-5.20); LYMPHOCYTES PERCENT AUTO 11 % (21-46); MONOCYTES ABSOLUTE AUTO 0.89 K/mm3 (0.16-1.47); MONOCYTES PERCENT AUTO 13 % (4-13); Mean Corpuscular HGB 25.1 pg (26.0-34.0); Mean Corpuscular HGB Conc 30.4 g/dL (31.5-36.5); Mean Corpuscular Volume 83 fL (80-100); Mean Platelet Volume 9.8 fL (9.1-12.4); NEUTROPHILS ABSOLUTE AUTO 4.98 K/mm3 (1.96-9.15); NEUTROPHILS PERCENT AUTO 73 % (41-73); NRBC ABSOLUTE 0.02 K/mm3 (0.00-0.02); NRBC Auto 0.3 /100 WBC (0.0-0.2); Platelet Count 202 K/mm3 (150-400); RDW Coefficient Variation 18.8 % (11.7-14.2); Red Blood Cell Count 5.09 M/mm3 (4.30-5.90); White Blood Cell Count 6.79 K/mm3 (4.00-11.30)
[2022-09-03 07:01] LABS: Albumin, Blood 1.9 g/dL (3.4-5.0); Albumin/Globulin Ratio 0.3 (0.8-1.8); Bilirubin, Total 0.5 mg/dL (0.1-1.0); Bun/Creatinine Ratio 32.1 (12.0-20.0); Calcium, Blood 8.4 mg/dL (8.5-10.1); Creatinine, Blood 1.56 mg/dL (0.60-1.20); Globulin, Blood 5.5 g/dL (2.2-4.0); Potassium, Blood 4.6 mmol/L (3.5-5.5); Total Protein, Blood 7.4 g/dL (6.4-8.2)
[2022-09-03 07:06] LABS: Vancomycin, Random 24.3 ug/mL
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
[2022-09-03] MEDS ORDERED: METOPROLOL SUCC25 MG PO (12:31)
[2022-09-03] MEDS ORDERED: ABILIFY MYCITE15 M2 PO (12:31)
[2022-09-03] MEDS ORDERED: MIRT30 PO (12:32)
[2022-09-03] MEDS ORDERED: [UNRECOGNIZED DRUG - CODE] TOP (12:32)
[2022-09-03] MEDS ORDERED: PERM5TC TOP (12:33)
[2022-09-03] MEDS ORDERED: DOXY100 PO (12:36)
[2022-09-03] MEDS ORDERED: IVERMECTIN3 MG PO (12:41)
[2022-09-03] MEDS ORDERED: Loratadine10 MG PO (12:45)
--- NOTE | 2022-09-03 19:38 | NUR ---
RN NOTE NO CHANGES IN MENTAL STATUS OR SPEACH SINCE AM NOTE. SUMMER, TRACK COACH SPOKE TO PT'S EX- AND THE PLAN WAS FOR THE EX TO TAKE THE PT TO HER HOME TO CARE FOR HIM. EX VERBALISED UNDERSTANDING OF WRITTEN AND VERBAL DISCHARGE INSTRUCTIONS. SHE SAID SHE WILL INDUSTRIAL ENG PRESCRIPTIONS AT [facility]. PIV REMOVED INTACT AND EX HELPED PT TO DRESS. SHE WHEELED HIM FROM THE MEDICAL UNIT WITHOUT WAITING FOR STAFF ASSIST TO ESCORT HIM OUT AT 1825HRS. WOUND TO RIGHT FOOT WAS REDRESSED THIS MORNING. PT WAS ASSISTED TO THE BATHROOM AND HAD BM WITH 2 PERSON ASSIST, UNSTEADY GAIT. NE HAS DENIED PAIN/SOB TODAY.
== END 2022-09-03 18:25 | disposition home or self-care (01) ==
LOC: ER 00:31 → MEDS 00:32 → ER 00:32 → MEDS 05:04
PROVIDERS: Emergency Medicine; Family Medicine; ADMIT Internal Medicine
DX: E11.69 Type 2 diabetes mellitus with other specified complication (principal); M86.271 Subacute osteomyelitis, right ankle and foot; B86 Scabies; R21 Rash and other nonspecific skin eruption; B85.0 Pediculosis due to Pediculus humanus capitis; F17.210 Nicotine dependence, cigarettes, uncomplicated; E11.52 Type 2 diabetes mellitus with diabetic peripheral angiopathy with gangrene; I96 Gangrene, not elsewhere classified; E87.1 Hypo-osmolality and hyponatremia; E78.5 Hyperlipidemia, unspecified; I11.0 Hypertensive heart disease with heart failure; I50.22 Chronic systolic (congestive) heart failure; E11.40 Type 2 diabetes mellitus with diabetic neuropathy, unspecified; F15.10 Other stimulant abuse, uncomplicated; Z91.14 Patient's other noncompliance with medication regimen; Z79.899 Other long term (current) drug therapy; Z79.01 Long term (current) use of anticoagulants; Z79.82 Long term (current) use of aspirin; Z79.84 Long term (current) use of oral hypoglycemic drugs; Z89.422 Acquired absence of other left toe(s); Z59.89 Other problems related to housing and economic circumstances
CPT/HCPCS: 36415; 73630; 80053; 80202; 81001; 82803; 82947; 83036; 85025; 85651; 86141; 87086; 87389; 96365; 96366; 96367; 96372; 96372-59; 96376; 99285-25; A9270; G0378; G0480; J0692; J0696; J1650; J3370; J7050

== ENCOUNTER 2022-09-17 12:01 | Inpatient (IN) | payer MEDICARE ==
[~2022-09-17] VITALS: Ht 172.7 cm; Wt 77.3 kg
[~2022-09-17 12:01] MED LIST changes: +ABILIFY MYCITE15 M2 PO; +DOXY100 PO; +IVERMECTIN3 MG PO; +Loratadine10 MG PO; +METOPROLOL SUCC25 MG PO; +PERM5TC TOP; +[UNRECOGNIZED DRUG - CODE] TOP
[2022-09-17 12:15] LABS: Calcium, Ionized (POC) 1.02 mmol/L (1.10-1.46); Chloride (POC) 118 mmol/L (98-108); Creatinine (POC) 5.6 mg/dL (0.8-1.3); Glucose (ISTAT POC) 116 mg/dL (70-99); Potassium (POC) 7.1 mmol/L (3.5-5.5); Sodium (POC) 143 mmol/L (135-148); Total CO2 (POC) 20 mmol/L (21-32)
[2022-09-17 12:39] LABS: Hematocrit 44.6 % (37.0-53.0); Hemoglobin 14.1 g/dL (13.5-17.5); Mean Corpuscular HGB 25.5 pg (26.0-34.0); Mean Corpuscular HGB Conc 31.6 g/dL (31.5-36.5); Mean Corpuscular Volume 81 fL (80-100); NRBC ABSOLUTE 0.47 K/mm3 (0.00-0.02); NRBC Auto 4.6 /100 WBC (0.0-0.2); Platelet Count 91 K/mm3 (150-400); RDW Coefficient Variation 19.9 % (11.7-14.2); Red Blood Cell Count 5.53 M/mm3 (4.30-5.90); White Blood Cell Count 10.27 K/mm3 (4.00-11.30)
[2022-09-17 13:27] LABS: Albumin, Blood 2.1 g/dL (3.4-5.0); Albumin/Globulin Ratio 0.4 (0.8-1.8); Bilirubin, Total 0.8 mg/dL (0.1-1.0); Bun/Creatinine Ratio 24.5 (12.0-20.0); Calcium, Blood 9.2 mg/dL (8.5-10.1); Creatinine, Blood 5.35 mg/dL (0.60-1.20); Globulin, Blood 4.9 g/dL (2.2-4.0); Potassium, Blood 6.6 mmol/L (3.5-5.5)
[2022-09-17 13:33] LABS: BASOPHILS PERCENT MAN 0 % (0-2); EOSINOPHILS PERCENT MAN 0 % (0-6); LYMPHOCYTES ABSOLUTE MAN 0.41 K/mm3 (0.84-5.20); LYMPHOCYTES PERCENT MAN 4 % (21-46); MONOCYTES PERCENT MAN 1 % (4-13); NEUTROPHILS ABSOLUTE MAN 9.75 K/mm3 (1.96-9.15); SEG NEUTROPHILS PERCENT MAN 95 % (41-73); TOTAL CELLS COUNTED 100
--- NOTE | 2022-09-17 14:00 | NUR ---
INITIAL ASSESSMENT PATIENT RESPONDING TO VERBAL STIMULI BY MOVING EYES TOWARD NURSE BUT STILL GAZING OFF. PATIENT IN AND OUT OF BEING OBTUNDED. PUPILS 7+ IN SIZE AND SLOW TO RESPOND TO LIGHT. NO SPEECH NOTED. PATIENT LOCALIZING MOVEMENTS. PATIENT ON 4 L NC TO KEEP SATS 90% AND GREATER. TEMP PACER IN PLACE; RATE SET AT 80, OUTPUT 5 MA AND SENSE 2 MV. JVD+. HR IN THE 80S. SBP IN THE 80S. NPO FOR DECREASED RESPONSIVENESS. SKIN COLD AND DUSKY. NO TOES NOTED TO L FOOT. WOUND TO R PINKY TOE; FOUL SMELLING. SCATTERED SCABS NOTED T/O BODY. BED LOW, CALL LIGHT IN REACH.
--- NOTE | 2022-09-17 16:39 | NUR ---
DR. JAUREGUI UPDATED ON PATIENT STATUS. INFORMED THAT BLOOD SUGAR 53 AND THAT AMP OF D50 GIVEN. INFORMED THAT SIGNIFICANT OTHER STATED PATIENT HAS BEEN HAVING DIARRHEA LATELY, THAT HE HAS NOT BEEN WANTING TO EAT AND THAT HE HASN'T REALLY BEEN TALKING MUCH. S.O. STATED THAT SHE "WAS WONDERING IF PATIENT HAVING MINI STROKES". ORDER FOR D10 OBTAINED. NO OTHER ORDERS RECEIVED AT THIS TIME.
--- NOTE | 2022-09-17 19:02 | NUR ---
DR. JAUREGUI UPDATED ON PATIENT STATUS. INFORMED THAT LACTIC INCREASED TO 2.4 FROM 2.3. INFORMED THAT PATIENT STARING OUT CEILING BUT NOT RESPONDING TO NURSE. INFORMED THAT PATIENT HAS ONLY HAD ABOUT 3 CC OF URINE OUTPUT FROM SOLANO SINCE ADMITTED TO ICU. ORDERS TO OBTAIN STAT BLOOD AMMONIA AND BMP RECEIVED.
--- NOTE | 2022-09-17 19:10 | NUR ---
SHIFT SUMMARY PATIENT RESPONDING TO VERBAL STIMULI SLIGHTLY WHEN ARRIVED TO UNIT. PATIENT NOW STARING AT CEILING AND NOT RESPONDING TO NURSE. DR. JAUREGUI WAS INFORMED. PATIENT REMAINS LOCALIZING MOVEMENT TO EXTREMITIES AT TIMES. RAGHU HUGGER PLACED THIS SHIFT FOR RECTAL TEMP OF 87.8 DEGREES FAHRENHEIT. PATIENT REMAINED ON 4 L NC. WHEEZE IMPROVED. TEMP PACER REMAINED AT SAME SETTINGS AND PATIENT REMAINED 100% PACED. LEVOPHED STARTED TO MAINTAIN MAP ABOVE 65. LEVOPHED CURRENTLY AT 2 MCG/ MINUTE. SCDS PLACED. PATIENT HAS REMAINED NPO. SOLANO DRAINED BARELY 3 CC OF CATHRYN COLORED URINE; DR. JAUREGUI AWARE. PULSES TO FEET REMAIN ABSENT EXCEPT FOR DOPPLER HEARD TO L D.PEDIS. PATIENT GIVEN 3 AMPS D50 FOR LOW BLOOD SUGARS THIS SHIFT. SODIUM BICARB STARTED THIS SHIFT AND IS AT 100 MLS/ HOUR. D10 STARTED AT 75 MLS/ HOUR AND IS NOW AT 125 MLS/ HOUR. RENAL US PERFORMED THIS SHIFT. HEAD CT PERFORMED THIS SHIFT. BED LOW, CALL LIGHT IN REACH.
--- NOTE | 2022-09-17 19:10 | NUR ---
REPORT GIVEN TO ASSUMING WEB ASSISTANT NURSE.
--- NOTE | 2022-09-17 19:15 | NUR ---
ASSUMED CARE PATIENT LYING IN BED WITH EYES OPEN, 2LPM NC IN PLACE. MONITOR SHOWS 100% PACED RHYTHM-TRANSVENOUS PACER TO RT GROIN WITH RATE: 80, OUTPUT: 5, SENSE: 2. SOLANO PATENT AND DRAINING MINIMAL URINE TO GRAVITY-5ML CURRENTLY IN BAG. SCD'S IN PLACE. PATIENT DOES NOT SPEAK, ONLY MOANS INTERMITTENTLY. ATTEMPTS TO TRACK TO SOUND WITH OBVIOUS NYSTAGMUS SAIDA. VSS. GTTS: LEVOPHED 2MCG/MIN, D10 125ML/HR, BICARB 100ML/HR, NS TKO. REPORT RECEIVED FROM BRITNEY DELACRUZ.
[2022-09-17 19:52] LABS: Creatinine, Blood 5.53 mg/dL (0.60-1.20); Potassium, Blood 5.9 mmol/L (3.5-5.5)
--- NOTE | 2022-09-17 20:20 | NUR ---
LAB RESULTS/GLUCAGON CHEMISTRY PANEL RESULTED WITH BUN 127 AND CREATININE 5.53. CALL MADE TO DR. FOOTE TO NOTIFY OF RESULTS AND THAT THERE WAS NO CURRENT NEPHROLOGY CONSULT ORDERED. NO NEW ORDERS RECEIVED, DR. FOOTE ADVISED TO PASS THIS ON TO DAY SHIFT. UPON REVIEWING HISTORY, PATIENT HOME MED LIST CONTAINED METOPROLOL. REVIEWED PATIENT ASSESSMENT OF HYPOGLYCEMIA, HYPOTENSION, AND BRADYCARDIA WITH DR. FOOTE AND ORDER RECEIVED FOR GLUCAGON 1MG IV.
[2022-09-17 21:03] LABS: Source, Urine Foley catheter
[2022-09-17 21:08] LABS: Appearance, Urine Turbid (Clear); Blood, Urine 5+ (Neg); Color, Urine Brown (P-Yellow); Glucose Qualitative, Urine 1+ (Neg); Ketones, Urine 1+ (Neg); Leukocyte Esterase, Urine 2+ (Neg); Nitrite, Urine Pos (Neg); Protein, Urine 4+ (Neg); Specific Gravity, Urine 1.025 (1.003-1.022); Urobilinogen, Urine 2+ (Normal)
[2022-09-17 21:18] LABS: Bilirubin, Urine 2+ (Neg)
[2022-09-17 21:22] LABS: Bacteria Many /hpf; Red Blood Cells, Urine 25-50 /hpf (0-2); Renal Epithelial Rare /hpf (0-Rare); Squamous Epithelial Cells Few /hpf (Few)
[2022-09-17 21:23] LABS: Granular Casts 0-2 /lpf (0)
[2022-09-17 21:24] LABS: Amorphous Light (0-Heavy)
[2022-09-17 21:41] LABS: U Amphetamine Screen DETECTED; U Barbituate Screen Not Detected; U Benzodiazapine Screen Not Detected; U Buprenorphine Screen Not Detected; U Cannabinoids Screen Not Detected; U Cocaine Screen Not Detected; U Methadone Screen Not Detected; U Methamphetamine Screen DETECTED; U Opiates Screen Not Detected; U Oxycodone Screen Not Detected; U Phencyclidine Screen Not Detected; U Propoxyphene Screen Not Detected
--- NOTE | 2022-09-18 02:52 | NUR ---
GLUCOSE-GLUCAGON AND D50 PATIENT GLUCOSE WAS 75-SLOWLY DECREASING HOURLY. D10 STILL INF @ 125ML/HR. CALL MADE TO DR. MAGAÑA REGARDING INCREASING D10 GTT. ORDER OBTAINED TO KEEP D10 @ 125ML/HR AND ADMINISTER 1 AMP D50 AND 1MG GLUCAGON IV.
[2022-09-18 03:49] LABS: Hematocrit 40.1 % (37.0-53.0); Hemoglobin 12.8 g/dL (13.5-17.5); Mean Corpuscular HGB 25.3 pg (26.0-34.0); Mean Corpuscular HGB Conc 31.9 g/dL (31.5-36.5); Mean Corpuscular Volume 79 fL (80-100); NRBC ABSOLUTE 0.41 K/mm3 (0.00-0.02); NRBC Auto 4.6 /100 WBC (0.0-0.2); Platelet Count 79 K/mm3 (150-400); RDW Coefficient Variation 19.5 % (11.7-14.2); RDW Standard Deviation 54.7 fL (35.1-46.3); Red Blood Cell Count 5.06 M/mm3 (4.30-5.90); White Blood Cell Count 8.97 K/mm3 (4.00-11.30)
--- NOTE | 2022-09-18 04:02 | NUR ---
FLUID OVERLOAD PATIENT IS EXHIBITING SCLERAL EDEMA, INCREASED COARSENESS T/O LUNG MANZANO, AND INCREASED WORK OF BREATHING. SPO2 MAINTAINING IN MID 90'S ON 2LPM NC. NO URINE OUTPUT THIS SHIFT. CALL MADE TO DR. MAGAÑA AND ORDERS RECEIVED FOR BIPAP PROTOCOL AND NEPHROLOGY CONSULT.
--- NOTE | 2022-09-18 06:43 | NUR ---
RESPIRATORY CODE: SCRIBE NOTES SEE NN FOR EVENTS LEADING UP TO EVENT. 0620 CODE CALLED OVERHEAD. PATIENT MAINTAINED PULSE THROUGHOUT EVENT. 0622: DR GARCIA FROM ED ARRIVED 0625: 20 ETOMIDTE & 10 ROCURONIUM ADMINISTED IVP-INTUBATED WITH AN 8.0 ETT AND WAS 25CM AT THE [facility]. DR MAGAÑA ARRIVED AND PROVIDED ORDERS ALONG WITH MOVABLE BULKHEAD INSTALLER CONSULT. 0635: CXR OBTAINED, CALLED DR MAGAÑA TO VIEW & RT TO PULL BACK X 1CM.
--- NOTE | 2022-09-18 06:48 | NUR ---
SHIFT SUMMARY/SEIZURE PATIENT TRACKED TO SOUND T/O SHIFT UNTIL AROUND 0600. PATIENT THEN BEGAN SEIZING. ATIVAN 2MG IV GIVEN TO PATIENT AND ROLLED TO LEFT SIDE TO SUCTION AIRWAY. COLOR CHANGED TO CYANOTIC AND SPO2 DROPPED TO 70'S. PATIENT BECAME UNRESPONSIVE. CODE BLUE CALLED AND PATIENT INTUBATED. SEE "RESPIRATORY CODE: SCRIBE NOTES". SEE PREVIOUS NURSE NOTES FOR SHIFT UPDATES.
--- NOTE | 2022-09-18 08:09 | NUR ---
[place] of Care: Care assumed at 0700hr. Patient intubated just prior to shift change. Received sedatives and paralytics for intubation, but currently not on any sedative gtt's. No neuro response to painful or verbal stimuli, no cough or gag reflex, will continue to re-assess. Tolerating vent without difficulty, spO2-97% on 70% FiO2. Levophed gtt at 4mcg/min, BP stable. Trans-venous pacer to rt groin, back up rate set to 80. Heart rate/rhythm shows 100% V-paced at 80bmp. Peripheral IV's x2 patent and intact. Plan to place PICC line per Dr. Deluna. Repeat blood glucose this morning of 85, and 90, D50% IV given by SHAYLA RN at approx 0600hr, also currently on D10% gtt at 125ml/hr. Yris TAN, called nephro consult to Dr. Elizalde this morning. Received orders for whole blood K+ level, insert bernal cath, and IV lasix. Dr. Hurtado to bedside shortly after shift change, stated no need for immediate surgical intervention at this time, ordered x-rays of rt foot, and that he would be back this afternoon to re-assess patient.
--- NOTE | 2022-09-18 08:11 | NUR ---
ASSUMPTION OF CARE PATIENT IS INTUBATED AND TOLERATING VENT WELL. OXYGEN SATURATIONS GOOD AT 99%. PATIENT IS NOT RESPONSIVE TO VERBAL OR PAINFUL STIMULI.PATIENT PATIENT DID RECIEVE PARALYTICS THIS AM FOR INTUBATION. WILL REASSESS NEURO AFTER PARALYTICS HAVE WORN OFF. TEMPORARY VENOUS TRANSPACER WAS PLACED TO THE RIGHT GROIN WITH A BACKUP RATE OF 80BPM. PATIENTS RHYTHM SHOWS 100% V PACED. COURSE RONCHAI LUNG SOUNDS IN THE BASES OF THE LUNGS, UPPER LOBES WERE CLEAR.BOWEL SOUNDS WERE HYPOACTIVE BUT PRESENT IN ALL QUADRANTS. DOCTOR HUBER WAS AT BEDSIDE TO ASSESS PATIENT. DOCTOR DECIDED THAT NO SUGICAL INTERVENTIONS ARE NEEDED AT THIS TIME BUT TO CONTINUE ANTIBIOTICS.
[2022-09-18 08:21] LABS: PCO2 Arterial 39.2 mmHg (35-45); PO2 Arterial 136 mmHg (80-100)
[2022-09-18 08:22] LABS: pH Blood Arterial 7.26 (7.35-7.45)
[2022-09-18 08:57] LABS: Source, Urine Foley catheter
[2022-09-18 09:36] LABS: Appearance, Urine Turbid (Clear); Blood, Urine 5+ (Neg); Color, Urine Brown (P-Yellow); Glucose Qualitative, Urine 1+ (Neg); Ketones, Urine Neg (Neg); Leukocyte Esterase, Urine 1+ (Neg); Nitrite, Urine Neg (Neg); Protein, Urine 3+ (Neg); Urobilinogen, Urine 1+ (Normal)
[2022-09-18 09:53] LABS: Bilirubin, Urine 1+ (Neg)
[2022-09-18 09:58] LABS: Bacteria Mod /hpf; Red Blood Cells, Urine TNTC /hpf (0-2); Squamous Epithelial Cells Few /hpf (Few); White Blood Cells, Urine 0-2 /hpf (0-5)
--- NOTE | 2022-09-18 11:56 | NUR ---
Update: PICC line placed to JOSELUIS by this RN, inserted without difficulty. PICC placement verified via chest-xray. Levophed gtt decreased to 2mcg/min, BP remains stable. Temp per rectal temp-probe continues to decrease, now down to 94.5, bear-hugger blanket placed at this time. Dressing to temporary trans-venous pacer in rt groin changed per lifting. Will continue to monitor.
[2022-09-18 15:16] LABS: Base Excess Venous -6.9 mmol/L; Bicarbonate Venous 19.3 mmol/L (24.0-30.0); PCO2 Venous 37.3 mmHg (38-42); pH Blood Venous 7.32 (7.34-7.37)
--- NOTE | 2022-09-18 16:21 | NUR ---
Rhythm Change: At approx 1600hr, rhythm change noted. Patient has been 100% ventricular paced at 80bpm per rt groin trans-venous pacer throughout shift. At 1600hr, patient began ventricular beats that showed a change in morphology and very low amplitude. Pulse via doppler to lt groin assessed at that time, Patient maintains pulse despite morphology or amplitude of QRS complex. Dr. Deluna called to room, who increased output from 5ma to 7ma, with no effect noted. Call also placed to Dr. Simeon, received instructions to increase output to 10ma. Patient continues to have varying QRS complexes but low amplitude QRS not sustaining. Continues to maintain pulse and BP. No change to placement of trans-venous catheter, rt groin site remains C/D/I and secure.
[2022-09-18 16:57] LABS: Anion Gap 8 mmol/L (6-16); Blood Urea Nitrogen 127 mg/dL (8-24); Bun/Creatinine Ratio 22.8 (12.0-20.0); CO2, Blood 17 mmol/L (21-32); Calcium, Blood 8.3 mg/dL (8.5-10.1); Chloride, Blood 118 mmol/L (98-108); Creatinine, Blood 5.57 mg/dL (0.60-1.20); Glomerular Filtration Rate 11 (60-); Glucose, Blood 125 mg/dL (70-99); Potassium, Blood 5.7 mmol/L (3.5-5.5); Sodium, Blood 143 mmol/L (136-145); Vancomycin, Random 27.4 ug/mL
--- NOTE | 2022-09-18 17:44 | NUR ---
ASDNicoleK;JSDFLK;JSDFJ SDFKLJASDKL;FJ SDFL;KJASDL;FKJSADLFK;J
--- NOTE | 2022-09-18 17:50 | NUR ---
PATIENT TOLERATED VENT WELL THROUGHOUT THE SHIFT. SOLANO CATHETER WAS PLACED AND HAS HAD OUTPUT THROUGHOUT THE SHIFT. BLOOD PRESSURE WAS STABLE AND MAINTAINED WITH 2MCGS. SEE FLOW SHEET. PATIENT WAS ON CONTINUOUS D10 DRIP AND CONTINUED TO BE HYPOGLYCEMIC. 3 AMPS OF D50 WAS ADMINISTERED THROUGHOUT SHIFT. SEE EMAR FOR TIMES. PATIENT HAD A FEW EPISODES OF CHANGING QRS MORPHOLOGY AND AMPLITUDE BUT MAINTAINED CAPTURE. CAPTURE VARIFIED VIA POSITIVE DOPPLER PULSES. CARDIOLOGY CONTACTED AND REPORTED TO PATIENTS ROOM. DR NEAL SUSPECTED CHANGING MORPHOLOGY/ AMPLITUDE TO BE FUSION BEATS. BACK UP RATE ON PACEMAKER CHANGED FROM 80 TO 60 BPM. PATIENT MAINTAINED NORMAL SINUS RHYTHM FOR THE REMAINDER OF SHIFT.
--- NOTE | 2022-09-19 02:43 | NUR ---
GLUCOSE AND TF GLUCOSE STABALIZED 96-117. D10 ON SB. TF INCREASED TO GR 35ML/HR.
[2022-09-19 04:32] LABS: Hematocrit 35.3 % (37.0-53.0); Hemoglobin 11.7 g/dL (13.5-17.5); Mean Corpuscular HGB 25.2 pg (26.0-34.0); Mean Corpuscular HGB Conc 33.1 g/dL (31.5-36.5); Mean Corpuscular Volume 76 fL (80-100); NRBC ABSOLUTE 0.09 K/mm3 (0.00-0.02); NRBC Auto 0.7 /100 WBC (0.0-0.2); Platelet Count 58 K/mm3 (150-400); RDW Coefficient Variation 17.8 % (11.7-14.2); RDW Standard Deviation 48.4 fL (35.1-46.3); Red Blood Cell Count 4.64 M/mm3 (4.30-5.90)
[2022-09-19 04:59] LABS: Anion Gap 7 mmol/L (6-16); Blood Urea Nitrogen 126 mg/dL (8-24); Bun/Creatinine Ratio 21.1 (12.0-20.0); CO2, Blood 21 mmol/L (21-32); Calcium, Blood 7.8 mg/dL (8.5-10.1); Chloride, Blood 109 mmol/L (98-108); Creatinine, Blood 5.98 mg/dL (0.60-1.20); Glomerular Filtration Rate 10 (60-); Glucose, Blood 98 mg/dL (70-99); Magnesium, Blood 2.1 mg/dL (1.6-2.4); Sodium, Blood 137 mmol/L (136-145); Vancomycin, Random 22.6 ug/mL
--- NOTE | 2022-09-19 05:54 | NUR ---
SHIFT SUMMARY PATIENT REMAINED INTUBATED T/O SHIFT ON AC/VC 16/480/5/35%. SPO2 MAINTAINED MID TO HIGH 90'S. RR 16-20. PROPOFOL STARTED FOR SEDATION D/T PATIENT THRASHING HEAD SIDE TO SIDE AND UNCONTROLLABLE COUGHING. D10 TURNED OFF @ 0230 FOR STABALIZED BLOOD SUGARS AND PIVOT 1.5 INCREASED TO GR 35ML/HR. SOLANO DRAINED 525ML URINE OUT TO GRAVITY. NO BM THIS SHIFT. NO OTHER CHANGES DURING SHIFT.
--- NOTE | 2022-09-19 07:00 | NUR ---
ASSUMPTION OF CARE PT IS RECEIVING LEVOPHED 4MCG/MIN, PROPOFOL 30MCG/KG/MIN, BICARB 50ML/HR, AND NS TKO. HE REMAINS INTUBATED WITH VENT SETTINGS AC/VC 16/480/5/35%. PROPOFOL ON STANDBY FOR APPROX 30MIN. PT BEGINS COUGHING/GAGGING, FACIAL GRIMACING AND MOVING HEAD SIDE TO SIDE. PUPILS UNEQUAL, R 3MM AND L 4MM, SLUGGISH RESPONSE. R ARM INTERNALLY ROTATES TO PAINFUL STIMULI, MINIMAL RESPONSE FROM L ARM, BLE WITHDRAW FROM PRESSURE AGAINST BOTTOM OF FEET. PROPOFOL RESTARTED. LUNGS ARE COARSE, DIMINISHED IN BASES. PT HAS LARGE AMOUNT OF ORAL AND ETT SECRETIONS. PT HAD ONE EPISODE OF YELLOW LIQUID EMESIS. TUBE FEEDING ON HOLD. BOWEL TONES HYPOACTIVE. PT HAD LARGE SEMI-SOLID BM. TRANVENOUS PACER TO R GROIN SET AT RATE 60, OUTPUT 10, AND SENSITIVITY 2. HR 70S ON MONITOR. SOLANO PATENT AND DRAINING TO GRAVITY.
--- NOTE | 2022-09-19 08:40 | NUR ---
TRANVENOUS PACER REMOVAL MED SURG NURSE AT BEDSIDE FOR EVAL. TRANSVENOUS PACER PULLED BY DR AGUILAR. PRESSURE HELD TO R GROIN FOR 10MIN, CLEAR TEGADERM IN PLACE. SURROUNDING TISSUE SOFT, NO HEMATOMA.
--- NOTE | 2022-09-19 13:10 | NUR ---
TELE NEPHROLOGY VISIT WITH DR. CAMARILLO COMPLETED.
--- NOTE | 2022-09-19 14:05 | NUR ---
UPDATE PT TAKEN TO CT EARLIER THIS SHIFT. HAS BEEN VISITING AND UPDATED ON PT CONDITION. HOSPITALIST, TACK PULLER, FIBERGLASS ROLLER, AND MEMBERSHIP DIRECTOR HAVE ALL ROUNDED ON PT. FIBERGLASS ROLLER AWARE PT'S HR VARIES BETWEEN 50S-70S WITH OCCASIONAL DROPPED BEATS. BICARB DISCONTINUED. D10 STOPPED. CONTINUING TO MONITOR CBG Q2HRS.
--- NOTE | 2022-09-19 15:28 | NUR ---
SEDATION VACATION PROPOFOL OFF FOR 1HR. PT BEGINS COUGHING/GAGGING. SUCTIONED ETT AND ORAL SECRETIONS. PT MAKING PURPOSEFUL MOVEMENTS WITH BOTH UPPER EXTREMITIES TOWARD ETT AND THRASHING HEAD SIDE TO SIDE. PT HAS STRONG SAMPLING EXPERT. ATTEMPING TO OPEN EYES. HE IS NOT REDIRECTABLE AT THIS TIME. PT PLACED IN BILAT SOFT WRIST RESTRAINTS AND PROPOFOL RESTARTED.
--- NOTE | 2022-09-19 18:09 | NUR ---
SHIFT SUMMARY PT IS RECEIVING PROPOFOL 20MCG/KG/MIN, LEVOPHED 1MCG/MIN, AND NS TKO. HE IS INTUBATED WITH VENT SETTINGS AC/VC 16/480/5/35%. PUPILS REMAIN UNEQUAL AND SLUGGISH. HEAD CT DONE THIS SHIFT. DURING SEDATION VACATION PT MADE PURPOSEFUL MOVEMENTS WITH UPPER EXTREMTIIES TOWARD ETT. BILAT SOFT WRIST RESTRAINTS PLACED. 1ST DEGREE HB ON MONITOR WITH RATE 50S-60S. LEVOPHED TITRATED BETWEEN 1-4MCG/MIN TO MAINTAIN MAP >65. TRANSVENOUS PACER PULLED FROM R GROIN THIS AM BY HEALTH COACH, CLEAR TEGADERM IN PLACE. TUBE FEEDING INFUSING VIA OGT AT GOAL RATE. PT HAD 2 BMS THIS SHIFT. SOLANO PATENT AND DRAINING TO GRAVITY WITH SHIFT OUTPUT 1200ML THIS SHIFT. FAMILY/FRIENDS AT BEDSIDE AND UPDATED THROUGHOUT THE SHIFT.
--- NOTE | 2022-09-19 19:00 | NUR ---
ASSUMED CARE OF PT AT 1900 PT SEDATED AND ON VENT. NO VISITORS AT THIS TIME. BP AND HR STABLE AT THIS TIME. XAVIER PATENT AND DRAINGING TO GRAVITY. PROP @ 20 LEVO @ 1 MCG TKO @ 10 MLS/HR. SEE FULL ASSESSMENT FOR FURTHER INFORMATION.
[2022-09-20 03:51] LABS: Hematocrit 34.3 % (37.0-53.0); Hemoglobin 11.6 g/dL (13.5-17.5); Mean Corpuscular HGB 25.3 pg (26.0-34.0); Mean Corpuscular HGB Conc 33.8 g/dL (31.5-36.5); Mean Corpuscular Volume 75 fL (80-100); NRBC ABSOLUTE 0.04 K/mm3 (0.00-0.02); NRBC Auto 0.3 /100 WBC (0.0-0.2); RDW Coefficient Variation 17.7 % (11.7-14.2); RDW Standard Deviation 47.2 fL (35.1-46.3); Red Blood Cell Count 4.59 M/mm3 (4.30-5.90); White Blood Cell Count 15.06 K/mm3 (4.00-11.30)
[2022-09-20 04:00] LABS: Platelet Count 47 K/mm3 (150-400)
[2022-09-20 04:04] LABS: Alanine Aminotransfer (ALT/SGP 52 U/L (12-78); Albumin, Blood 1.3 g/dL (3.4-5.0); Albumin/Globulin Ratio 0.3 (0.8-1.8); Alk Phos 335 U/L (50-136); Anion Gap 8 mmol/L (6-16); Aspartate Aminotrans (AST/SGOT 62 U/L (12-37); Bilirubin, Total 0.9 mg/dL (0.1-1.0); Blood Urea Nitrogen 131 mg/dL (8-24); Bun/Creatinine Ratio 21.7 (12.0-20.0); CO2, Blood 23 mmol/L (21-32); Calcium, Blood 7.8 mg/dL (8.5-10.1); Chloride, Blood 107 mmol/L (98-108); Creatinine, Blood 6.04 mg/dL (0.60-1.20); Globulin, Blood 4.1 g/dL (2.2-4.0); Glomerular Filtration Rate 10 (60-); Glucose, Blood 116 mg/dL (70-99); Magnesium, Blood 2.1 mg/dL (1.6-2.4); Phosphorus, Blood 6.4 mg/dL (2.5-4.9); Potassium, Blood 4.7 mmol/L (3.5-5.5); Sodium, Blood 138 mmol/L (136-145); Total Protein, Blood 5.4 g/dL (6.4-8.2)
--- NOTE | 2022-09-20 05:00 | NUR ---
END OF SHIFT SUMMARY PT SEDATED AND INTUBATED. NO VISITORS THIS SHIFT. PT PULLS AWAY FROM ORAL CARE AND DARELL CARE. DOES NOT OBEY COMMANDS. CARDIAC- LEVO PUT ON SB IN MIDDLE OF SHIFT. SBP HAS INCREASED SINCE TO 140'S. HR 48-55. SIGNIFICANT 3+ PITTING EDEMA ON BLE. 2+ EDEMA ON BUE. RESP- VENT AT 16/480/5/45%. SPO2 >93%. GI,- FOLLEY DRAINGING TO GRAVITY WITH YELLOW/CLEAR URINE. 3 VERY THIN DIARRHEA STOOLS THIS SHIFT. TF AT GOAL RATE 35 MLS/HR. INTEG- NO CHANGES THIS SHIFT. SEE PREVIOUS NOTES. PROP @ 20 LEVO ON SB CBG RANGING IN 90'S THIS SHIFT. Q2 CBG'S DONE IN LAST 6 HOURS. WILL CONTINUE TO MONITOR UNTIL REPORT GIVEN TO DAYSHIFT RN.
--- NOTE | 2022-09-20 07:08 | NUR ---
ASSUMPTION OF CARE PT IS RECEIVING PROPOFOL 20MCG/KG/MIN AND NS TKO. LEVOPHED ON STANDBY. HE REMAINS INTUBATED WITH VENT SETTINGS AC/VC 16/480/5/35%. HE CONTINUES TO HAVE LARGE AMOUNTS OF ORAL AND ETT SECRETIONS. HR 50S ON MONITOR, SBP 140S. TUBE FEEDING INFUSING AT GOAL RATE. SOLANO PATENT AND DRAINING TO GRAVITY. SEE SHIFT ASSESSMENT.
--- NOTE | 2022-09-20 13:20 | NUR ---
SEDATION VACATION PROPOFOL OFF FOR APPROX 1HR. PT BECOMES RESTLESS. HE OPENS EYES TO VERBAL COMMAND. UPWARD GAZE AT FIRST THAT RESOLVED AFTER A FEW MINUTES. SCLERA YELLOW/RED. PT IS ABLE TO NOD/SHAKE HEAD TO ANSWER QUESTIONS. HE SHAKES HEAD "NO" WHEN ASKED IF HE IS IN PAIN. PT SQUEEZES BOTH HANDS STRONGLY TO VERBAL COMMAND. HE MAKES PURPOSEFUL MOVEMENTS WITH LOWER EXTREMITIES BUT NOT TO COMMAND. PT PULLING AGAINST WRIST RESTRAINTS AND REACHING TOWARD ETT DESPITE REDIRECTION AND REORIENTATION. PT CONTINUOUSLY THRASHING HEAD SIDE TO SIDE AND ATTEMPTING TO LEAN FORWARD AND REACH FOR TUBE. PROPOFOL RESTARTED AT 10MCG/KG/MIN FOR COMFORT.
--- NOTE | 2022-09-20 17:10 | NUR ---
SHIFT SUMMARY PT IS RECEIVING PROPOFOL 10MCG/KG/MIN AND NS TKO. HE REMAINS INTUBATED WITH VENT SETTINGS AC/VC 16/480/5/35%. PT WAKENS TO NOXIOUS STIMULI AND OCCASIONALLY ABLE TO FOLLOW SIMPLE COMMANDS. HE CONTINUES TO HAVE COPIOUS ORAL SECRETIONS. BP STABLE WITH SBP 120S-130S. HR 50S-60S. TUBE FEEDING INFUSING VIA OGT AT GOAL RATE. PT HAD 2 BMS THIS SHIFT. SOLANO PATENT AND DRAINING TO GRAVITY WITH SHIFT OUTPUT OF 2100ML PALE YELLOW URINE WITH SEDIMENT. SPOUSE FABRIZIO HAS BEEN UPDATED AND AT BEDSIDE.
[2022-09-21 04:18] LABS: Hematocrit 35.2 % (37.0-53.0); Mean Corpuscular HGB 24.9 pg (26.0-34.0); Mean Corpuscular HGB Conc 34.1 g/dL (31.5-36.5); Mean Corpuscular Volume 73 fL (80-100); NRBC ABSOLUTE 0.06 K/mm3 (0.00-0.02); NRBC Auto 0.4 /100 WBC (0.0-0.2); Platelet Count 55 K/mm3 (150-400); RDW Standard Deviation 44.6 fL (35.1-46.3); Red Blood Cell Count 4.81 M/mm3 (4.30-5.90); White Blood Cell Count 13.64 K/mm3 (4.00-11.30)
[2022-09-21 04:40] LABS: Anion Gap 8 mmol/L (6-16); Blood Urea Nitrogen 135 mg/dL (8-24); Bun/Creatinine Ratio 22.5 (12.0-20.0); CO2, Blood 23 mmol/L (21-32); Calcium, Blood 7.9 mg/dL (8.5-10.1); Chloride, Blood 106 mmol/L (98-108); Creatinine, Blood 5.99 mg/dL (0.60-1.20); Glomerular Filtration Rate 10 (60-); Glucose, Blood 125 mg/dL (70-99); Phosphorus, Blood 6.6 mg/dL (2.5-4.9); Potassium, Blood 4.9 mmol/L (3.5-5.5); Sodium, Blood 137 mmol/L (136-145); Vancomycin, Random 18.3 ug/mL
--- NOTE | 2022-09-21 05:21 | NUR ---
END OF SHIFT SUMMARY SEDATED AND VENTILATED. AC/VC 16/480/5/45% PT RESPONDS TO PAINFULL STIMULI. SHAKES HEAD LEFT TO RIGHT RANDOMLY WHEN CARE IS BEING DONE. DOES NOT OPEN EYES WHEN SPOKEND TO. CARDIAC- SBP 110'S. HR 40'S-50'S. SINUS MELINA AT TIMES. 3+ PITTING EDEMA BUE. RESP-SPO2 >94% WITH VETN SETTINGS. LUNG SOUNDS CLEAR BILATERALLY THROUGHOUT. GI, - FOLLEY PATENT AND DRAINING TO GRAVITY. YELLOW/CLEAR URINE PRESENT. TF SET AT GOAL RATE WITH NO ISSUES AT THIS TIME. 1 BM THIS SHIFT WITH LIQUID STOOL PRESENT. PROPOFOL @ 20 MCG TKO @ 10 MLS/HR WILL CONTINUE TO MONITOR UNTIL REPORT GIVEN TO DAYSHIFT RN.
--- NOTE | 2022-09-21 07:00 | NUR ---
ASSUMPTION OF CARE PT IS RECEIVING PROPOFOL 20MCG/KG/MIN AND NS TKO. HE REMAINS INTUBATED WITH VENT SETTINGS AC/VC 16/480/5/35%. HE RESPONDS TO VERBAL STIMULI, FOLLOWS SIMPLE COMMANDS. PUPILS EQUAL AND SLUGGISH. HR 50S, BP STABLE. TUBE FEEDING INFUSING AT GOAL RATE VIA OGT. SOLANO PATENT AND DRAINING TO GRAVITY. SEE SHIFT ASSESSMENT.
--- NOTE | 2022-09-21 10:56 | NUR ---
EXTUBATION PROPOFOL OFF AT 0935. TUBE FEEDING TURNED OFF. WITHIN 10 MIN, PT BEGINS WAKING UP AND FOLLOWING SIMPLE COMMANDS ALTHOUGH SLOW TO RESPOND. DR JOVEL AT BEDSIDE AT 0950 AND TRANSITIONED PT TO SPONT 5/5/35%. RR 10-16, TV 300S-600S. PT TOLERATING WELL. RT AT BEDSIDE AND PT EXTUBATED AT 1037. PT PLACED ON 4L NC, DECREASED TO 2LNC. SPO2 >95%, RR 15-19. PT MAKES PURPOSEFUL MOVEMENTS WITH EXTREMITES BUT VERY WEAK. PT HAS WEAK COUGH.
--- NOTE | 2022-09-21 18:04 | NUR ---
SHIFT SUMMARY PT EXTUBATED THIS AM. HE IS CURRENTLY ON RA WITH SPO2 >94%. RR 14-19. PT IS DROWSY AND RESTLESS. HE IS ABLE TO STATE NAME, RECOGNIZES SPOUSE AND KNOWS HE IS IN THE HOSPITAL. PT IS SLOW TO RESPOND. FOLLOWS SIMPLE COMMANDS BUT NEEDS REDIRECTED. HR 50S-60S. BP STABLE THROUGHOUT SHIFT. PT HAD 1 BM THIS SHIFT. SOLANO PATENT AND DRAINING TO GRAVITY. CBG CHECKS CHANGED TO Q2HRS. ORDER PLACED FOR D10. BED IN LOW POSITION, CALL LIGHT WITHIN REACH AND BED ALARM ON.
[2022-09-21 18:43] LABS: Base Excess Venous 1.9 mmol/L; PCO2 Venous 53.7 mmHg (38-42); pH Blood Venous 7.32 (7.34-7.37)
[2022-09-22 03:52] LABS: Hematocrit 35.5 % (37.0-53.0); Mean Corpuscular HGB 25.1 pg (26.0-34.0); Mean Corpuscular HGB Conc 33.8 g/dL (31.5-36.5); Mean Corpuscular Volume 74 fL (80-100); NRBC ABSOLUTE 0.02 K/mm3 (0.00-0.02); NRBC Auto 0.1 /100 WBC (0.0-0.2); Platelet Count 57 K/mm3 (150-400); RDW Coefficient Variation 17.1 % (11.7-14.2); RDW Standard Deviation 45.5 fL (35.1-46.3); Red Blood Cell Count 4.78 M/mm3 (4.30-5.90); White Blood Cell Count 16.38 K/mm3 (4.00-11.30)
[2022-09-22 04:13] LABS: Anion Gap 5 mmol/L (6-16); Blood Urea Nitrogen 138 mg/dL (8-24); Bun/Creatinine Ratio 23.8 (12.0-20.0); CO2, Blood 27 mmol/L (21-32); Calcium, Blood 8.7 mg/dL (8.5-10.1); Chloride, Blood 105 mmol/L (98-108); Creatinine, Blood 5.81 mg/dL (0.60-1.20); Glomerular Filtration Rate 10 (60-); Glucose, Blood 150 mg/dL (70-99); Phosphorus, Blood 7.5 mg/dL (2.5-4.9); Potassium, Blood 5.4 mmol/L (3.5-5.5); Sodium, Blood 137 mmol/L (136-145); Vancomycin, Random 17.5 ug/mL
--- NOTE | 2022-09-22 09:30 | NUR ---
ASSUMED CARE: PATIENT IS ALERT AND ORIENTED TO SELF. THE PATIENT IS CURRENTLY ON CPAP ON AUTO SETTINGS. HE WAS PLACED ON PRECEDEX DUE TO NOT TOLERATING CPAP. THE PRECEDEX IS CURRENTLY OFF TO SEE HOW HE DOES. HEART SOUNDS ARE AUDIBLE BUT DISTANT. LUNG SOUNDS ARE CLEAR IN BOTH RIGHT AND LEFT UPPER LOBES BUT ARE DIMINISHED IN THE LOWER LOBES. OXYGEN SATURATIONS ARE IN THE HIGH 90S. SYSTOLIC BLOOD PRESSURES HAVE RANGED FROM 110S-130S. HEART RATE IS HOVERING IN THE 50S AND OCCASSIONALLY GOES INTO THE LOW 60S. ABDOMEN IS SLIGHTLY TENDER TO THE TOUCH. BOWEL SOUNDS ARE HYPOACTIVE IN ALL FOUR QUADRANTS. PT IS BEING REPOSITIONED EVERY TWO HOURS, BUT HE DOES REPOSITION HIMSELF PERIODICALLY. SOLANO CATHETER IS IN PLACE AND IS DRAINING APPROPRIATELY. PT IS NPO DUE TO CONFUSION AND CANNOT BE GIVEN HIS PO MEDICATIONS. PT HAS BEEN GIVEN A BED BATH AND IS NOT RESTING COMFORTABLY.
--- NOTE | 2022-09-22 11:00 | NUR ---
DR GONZALEZ: PROVIDER AT BEDSIDE THIS AM TO RADHAMES PT. DISCUSSED PT's MENTATION & NOTIFIED HER THAT THIS RN HAS TURNED OFF PRECEDEX TO SEE IF PT REMAINS CALM OR BECOMES AGITATED AGAIN. HE IS CURRENTLY RESTING QUIETLY, COOPERATIVE W/ STAFF CARE MEASURES. DISCUSSED PT's PRIOR ISSUES W/ SWALLOWING, SPEECH THERAPY EVAL ORDERED. ALSO DISCUSSED PT's COMPLEX SOCIAL SITUATION, HE "COUCH HOPS" PER HIS & IS HOMELESS. HE & HIS REMAIN BUT HAVE BEEN FOR MANY YEARS AT THIS POINT. ORDERS ALSO PLACED FOR CHEMIST FOOD/ CASE MANAGEMENT. NO OTHER CHANGES AT THIS TIME.
--- NOTE | 2022-09-22 18:19 | NUR ---
END OF SHIFT SUMMARY: PATIENT DID WELL THROUHOUT THE DAY. PATIENT WAS ABLE TO TOLERATE BEING OFF CPAP AND REMAINS ON RA. HE IS ALERT AND ORIENTED X1 AND ABLE TO FOLLOW COMMANDS. HIS LUNGS ARE DIMINISHED IN THE LOWER LOBES WITH OCCASSIONAL EXPIRATORY WHEEZES IN THE UPPER LOBES. HEART SOUNDS ARE DISTANT AND HEART RATE IS HOVERING IN THE 50S-60S. BP REMAINS IN THE 130S-140S. RADIAL PULSES ARE PALPABLE BUT DOPPLER REQURIED FOR PEDAL PULSES. PT'S SKIN IS WARM AND DUSKY WITH MORE THAN 3 SECOND CAPILLARY REFILL. PATIENT IS UNCOMFORTABLE IN BED. HE IS ABLE TO REPOSITION HIMSELF BUT IS WEAK. PT MOVED TO A PUREE DIET WITH MEDS CRUSHED IN APPLESAUCE. SOLANO CATHETER IN PLACE AND DRAINING APPROPRIATELY. NO BOWEL MOVEMENT DURING THE SHIFT. TKO AND D10 STILL INFUSING IN LEFT PICC LINE. THREE SIDE RAILS ARE UP AND CALL LIGHT IS WITHIN REACH.
--- NOTE | 2022-09-22 19:00 | NUR ---
ASSUMED CARE OF PT AT 1900 PT SLEEPING IN BED AT THIS TIME. BED IN LOW POSITION WITH BED ALARM ON. CALL LIGHT WITHIN REACH. ALL VITALS STABLE AT THIS TIME. D10 @ 60 MLS/HR CBG DONE WITHIN LAST 30 MINUTES WITH RESULT ABOVE 100. TKO @ 10 MLS/HR. SEE FULL ASSESSMENT FOR FURTHER DETAILS.
--- NOTE | 2022-09-23 05:57 | NUR ---
END OF SHIFT SUMMARY PT RESTED MOST OF THE NIGHT. INTERMITENT MOANING HEARD FROM OUTSIDE THE ROOM. PT NODS HEAD YES AND NO. MUMBLES MINIMAL WORDS WHEN ABLE TO GET HIM TO SAY ANYTHING. CARDAIC- BP WNL MOST OF THE SHIFT. TACHY THIS AM WITH SBP 140'S. HR 60'S. NO SIGNIFICANT CHANGES THIS SHIFT OTHERWISE. RESP- SPO2 >93% ON RA. NO COUGH NOTED THIS SHIFT. GI,- NO BM THIS SHIFT. SOLANO PATENT AND DRAINING TO GRAVITY. YELLOW/CLEAR URINE PRESENT WITH SEDIMENT WELL. PT IS ABLE TO EAT PUREE FOOD, HOWEVER PT APPETITE WAS MINIMAL THIS SHIFT. D10 @ 60 MLS/ HR CBG'S 90'S-100'S. TKO @ 10 MLS/HR. WILL CONTINUE TO MONITOR PT UNTIL REPORT IS GIVEN TO AM BRITNEY.
[2022-09-23 06:11] LABS: Albumin, Blood 1.3 g/dL (3.4-5.0); Anion Gap 6 mmol/L (6-16); Blood Urea Nitrogen 103 mg/dL (8-24); Bun/Creatinine Ratio 25.7 (12.0-20.0); CO2, Blood 22 mmol/L (21-32); Chloride, Blood 115 mmol/L (98-108); Creatinine, Blood 4.01 mg/dL (0.60-1.20); Glomerular Filtration Rate 16 (60-); Glucose, Blood 100 mg/dL (70-99); Phosphorus, Blood 5.1 mg/dL (2.5-4.9); Potassium, Blood 3.9 mmol/L (3.5-5.5); Sodium, Blood 143 mmol/L (136-145)
[2022-09-23 06:13] LABS: Calcium, Blood 6.4 mg/dL (8.5-10.1)
--- NOTE | 2022-09-23 08:45 | NUR ---
ASSUMED CARE / DR CAMARILLO: REPORT RECEIVED FROM FROILAN No RN. ASSUMED CARE OF THIS PT AT APPROX 0700. ON ASSESSMENT, THE PT IS RESTING QUIETLY. HE AWAKENS EASILY TO VERBAL STIMULUS & IS ORIENTED TO SELF, FOLLOWING DIRECTIONS & PLACE. HE KNOWS THE CURRENT MONTH BUT IS UNSURE OF THE YEAR. LS DIM T/O, PT ON RA W/ O2 SATS > 92%. DENIES SOB. MONITOR SHOWS SB-SR W/ HR 50-60s, BP STABLE. PT TOLERATING SMALL AMNTS PO INTAKE WELL, SPEECH THERAPY TO EVAL AGAIN THIS AM. SOLANO PATENT/ DRAINING YELLOW URINE. SKIN CONDITION OVERALL POOR, FRAGILE. NUMEROUS AREAS OF SCABBING & BLEEDING SPOTS NOTED. GROIN/ DARELL AREA IS EXCORIATED. Q2H REPOSITIONING TO MAINTAIN SKIN INTEGRITY. PT REPOSITIONS SELF EASILY W/ VERBAL CUES FROM STAFF. DR CAMARILLO AT BEDSIDE THIS AM. THERE ARE NO PLANS FOR DIALYSIS AT THIS TIME R/T PT's IMPROVING LABWORK. POTASSIUM WNL; LOKELMA DISCONTINUED. NO OTHER CHANGES AT THIS TIME. WILL CONTINUE TO MONITOR & UPDATE NEEDED.
--- NOTE | 2022-09-23 12:53 | NUR ---
SERVICE CONSULTANT 2 STUDENT
--- NOTE | 2022-09-23 18:50 | NUR ---
SHIFT SUMMARY: NO ACUTE CHANGES SINCE PRIOR UPDATES. PT REMAINS A&O TO SELF, FAMILY, PLACE & FOLLOWING DIRECTIONS. HE HAS BECOME SLIGHTLY AGITATED THIS EVENING WHILE STAFF PROVIDING CARE MEASURES BUT RESPONDED WELL WHEN REMINDED THAT OUR GOAL IS ONLY TO HELP HIM. LS ARE DIM, PT ON RA W/ O2 SATS > 92%. MONITOR SHOWS SB-SR W/ HR 50-60s, HTN NOTED AT TIMES BUT GENERALLY RESOLVES WITHIN 15 MINS. PRN HYDRALAZINE ON EMAR. PT TOLERATING SMALL AMNTS PO INTAKE WELL W/ NO NAUSEA OR OTHER GI COMPLAINTS. SOLANO PATENT/ DRAINING DARK YELLOW URINE. SKIN CONDITION UNCHANGED FROM AM ASSESSMENT. CONDITION OVERALL POOR W/ NUMEROUS AREAS OF SCABBING & BLEEDING SORES. 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 PT's POOR CIRCULATION DISCUSSED & DOPPLER USED TO FIND FAINT/ THREADY PEDAL PULSE. DR HUBER STS HE WOULD NOT OPERATE ON THE EXTREMITY IT IS & WILL CONSULT DR PEREA. WILL CONTINUE TO MONITOR & REPORT OFF TO ONCOMING RN.
--- NOTE | 2022-09-23 20:00 | NUR ---
ASSUMED CARE OF PT AT 1915. REPORT RECEIVED AT BEDSIDE. PT PRESENTS IN BED. ALERT AND ORIENTED TO SELF. DOES ANSWER BASIC QUESTIONS. NO COMPLAINTS OF PAIN OR DYSPNEA. IS ABLE TO ASSIST SOME WITH TURNS. PT NOTED TO HAVE MULTIPLE WOUNDS AND SCABS. SEE WOUND PICS. WILL REVIEW CHART AND PLAN OF CARE FOR THIS PT.
--- NOTE | 2022-09-24 | NUR ---
PLACED CONDOM CATHETER SECONDARY TO INCONTINENCE. ATTENDS CHANGED. PT RESISTANT SOME TO CARE.
[2022-09-24 05:42] LABS: BASOPHILS ABSOLUTE AUTO 0.02 K/mm3 (0.00-0.23); BASOPHILS PERCENT AUTO 0 % (0-2); EOSINOPHILS PERCENT AUTO 1 % (0-6); Hematocrit 33.5 % (37.0-53.0); Hemoglobin 11.1 g/dL (13.5-17.5); IMMATURE GRAN ABSOLUTE AUTO 0.06 K/mm3 (0.00-0.10); IMMATURE GRAN PERCENT AUTO 0 % (0-1); LYMPHOCYTES ABSOLUTE AUTO 0.49 K/mm3 (0.84-5.20); LYMPHOCYTES PERCENT AUTO 4 % (21-46); MONOCYTES ABSOLUTE AUTO 0.85 K/mm3 (0.16-1.47); MONOCYTES PERCENT AUTO 6 % (4-13); Mean Corpuscular HGB Conc 33.1 g/dL (31.5-36.5); Mean Corpuscular Volume 76 fL (80-100); Mean Platelet Volume 10.5 fL (9.1-12.4); NEUTROPHILS ABSOLUTE AUTO 12.24 K/mm3 (1.96-9.15); NEUTROPHILS PERCENT AUTO 89 % (41-73); Platelet Count 86 K/mm3 (150-400); RDW Coefficient Variation 17.4 % (11.7-14.2); RDW Standard Deviation 47.1 fL (35.1-46.3); Red Blood Cell Count 4.44 M/mm3 (4.30-5.90); White Blood Cell Count 13.86 K/mm3 (4.00-11.30)
--- NOTE | 2022-09-24 06:03 | NUR ---
PT REMAINS ON ROOM AIR WITHOUT DYSPNEA. DOES MAKE URINE CLEAR YELLOW. NO COMPALINTS VOICED OR OBSERVED. HAVE DONE RIGHT PEDAL PULSE BY DOPPLER ONLY. WILL CONTINUE TO MONITOR PT, AND WILL REPORT OFF TO ONCOMING RN.
[2022-09-24 06:05] LABS: Albumin, Blood 1.7 g/dL (3.4-5.0); Anion Gap 4 mmol/L (6-16); Blood Urea Nitrogen 115 mg/dL (8-24); Bun/Creatinine Ratio 24.8 (12.0-20.0); CO2, Blood 28 mmol/L (21-32); Calcium, Blood 8.3 mg/dL (8.5-10.1); Chloride, Blood 105 mmol/L (98-108); Creatinine, Blood 4.63 mg/dL (0.60-1.20); Glomerular Filtration Rate 13 (60-); Glucose, Blood 104 mg/dL (70-99); Phosphorus, Blood 6.6 mg/dL (2.5-4.9); Potassium, Blood 5.2 mmol/L (3.5-5.5); Sodium, Blood 137 mmol/L (136-145)
--- NOTE | 2022-09-24 07:15 | NUR ---
ASSUMPTION OF CARE PT RECEIVING D10 60ML/HR AND NS TKO. HE IS A&OX3, OCCASIONALLY SLOW TO RESPOND. HE FOLLOWS SIMPLE COMANDS. DENIES PAIN OR DISCOMFORT AT THIS TIME. PT HAS A NONPRODUCTIVE HARSH COUGH. LUNGS ARE CLEAR, DIMINISHED IN BASES. RA WITH SPO2 >95%. BOWEL TONES ACTIVE, ABDOMEN SOFT. PT DENIES GI UPSET. SOLANO PATENT AND DRAINING TO GRAVITY. VSS AT THIS TIME. SEE SHIFT ASSESSMENT.
--- NOTE | 2022-09-24 12:38 | NUR ---
UPDATE PT MORE ALERT. HE IS A&OX3, ANSWERS QUESTIONS BY NODDING/SHAKING HEAD AND SAYING 1-4 WORD PHRASES. BEDSIDE SWALLOW DONE, PT TOLERATED WELL. ENCOURAGED TO TRY TO FEED SELF FOR LUNCH WITH SUPERVISION. PT STS "I CAN'T". ASSISTED WITH LUNCH.
--- NOTE | 2022-09-24 16:18 | NUR ---
PT TRANSFERRED FROM ICU2 TO MEDICAL FLOOR 311 AT 1540. PT UNABLE TO EXPRESS NEEDS. PT IS A 2-3 PERSON ASSIST. PT HAS MULTIPLE SKIN ISSUES-SEE 2 RN SKIN CHECK FOR TRANSFER. PT'S SOLANO CATHETER CLEASED PER HOSPITAL POLICY. BRIEF CHANGED AND DARELL AREA CLEANSED. SACRAL ALLEVYN CHANGED. CALAZIME PASTE PLACED TO REDDENED DARELL AREA.
--- NOTE | 2022-09-24 16:27 | NUR ---
ATTEMPTED TO NOTIFY SPOUSE FABRIZIO OF TRANSITION TO MEDICAL FLOOR. ATTEMPTED 3 CALLS AND VOICEMAIL BOX NOT SET UP.
[2022-09-25 05:46] LABS: Albumin, Blood 1.7 g/dL (3.4-5.0); Anion Gap 5 mmol/L (6-16); Blood Urea Nitrogen 105 mg/dL (8-24); Bun/Creatinine Ratio 23.8 (12.0-20.0); CO2, Blood 28 mmol/L (21-32); Calcium, Blood 8.5 mg/dL (8.5-10.1); Chloride, Blood 104 mmol/L (98-108); Creatinine, Blood 4.41 mg/dL (0.60-1.20); Glomerular Filtration Rate 14 (60-); Glucose, Blood 178 mg/dL (70-99); Phosphorus, Blood 5.7 mg/dL (2.5-4.9); Potassium, Blood 4.8 mmol/L (3.5-5.5); Sodium, Blood 137 mmol/L (136-145); Vancomycin, Random 20.4 ug/mL
--- NOTE | 2022-09-25 16:51 | NUR ---
STUDENT PRACTICAL NURSE SHIFT SUMMARY AOX2. SOLANO IN PLACE, DARK URINE. RIGHT 5TH TOE OSTEOMYELYTIS WITH ULCERARTION AND GANGRENE. HX OF SCABIES AND LICE NOW RESOLVED. 2 PERSN ASSIST. PATIENT INCONTINENT. VERY LETHARGIC. OR SON ASSISTS WITH FEEDS. PAIN MEDS GIVEN PER EMAR. BED LOCKED AND IN LOWEST POSITION. CALL LIGHT IN REACH.
--- NOTE | 2022-09-25 17:20 | NUR ---
SHIFT SUMMARY THIS RN AGREES WITH SHIFT ASSESSMENT AND SHIFT SUMMAARY.
[2022-09-26 05:06] LABS: BASOPHILS ABSOLUTE AUTO 0.01 K/mm3 (0.00-0.23); BASOPHILS PERCENT AUTO 0 % (0-2); EOSINOPHILS ABSOLUTE AUTO 0.11 K/mm3 (0.00-0.68); EOSINOPHILS PERCENT AUTO 1 % (0-6); Hematocrit 33.9 % (37.0-53.0); Hemoglobin 10.9 g/dL (13.5-17.5); IMMATURE GRAN ABSOLUTE AUTO 0.04 K/mm3 (0.00-0.10); IMMATURE GRAN PERCENT AUTO 0 % (0-1); LYMPHOCYTES ABSOLUTE AUTO 0.52 K/mm3 (0.84-5.20); LYMPHOCYTES PERCENT AUTO 4 % (21-46); MONOCYTES ABSOLUTE AUTO 0.77 K/mm3 (0.16-1.47); MONOCYTES PERCENT AUTO 6 % (4-13); Mean Corpuscular HGB 24.6 pg (26.0-34.0); Mean Corpuscular HGB Conc 32.2 g/dL (31.5-36.5); Mean Corpuscular Volume 77 fL (80-100); Mean Platelet Volume 10.2 fL (9.1-12.4); NEUTROPHILS ABSOLUTE AUTO 10.64 K/mm3 (1.96-9.15); NEUTROPHILS PERCENT AUTO 88 % (41-73); Platelet Count 111 K/mm3 (150-400); RDW Coefficient Variation 17.5 % (11.7-14.2); RDW Standard Deviation 48.6 fL (35.1-46.3); Red Blood Cell Count 4.43 M/mm3 (4.30-5.90); White Blood Cell Count 12.09 K/mm3 (4.00-11.30)
[2022-09-26 05:39] LABS: Albumin, Blood 1.8 g/dL (3.4-5.0); Anion Gap 4 mmol/L (6-16); Blood Urea Nitrogen 90 mg/dL (8-24); Bun/Creatinine Ratio 22.2 (12.0-20.0); CO2, Blood 28 mmol/L (21-32); Calcium, Blood 8.5 mg/dL (8.5-10.1); Chloride, Blood 105 mmol/L (98-108); Creatinine, Blood 4.05 mg/dL (0.60-1.20); Glomerular Filtration Rate 15 (60-); Glucose, Blood 105 mg/dL (70-99); Phosphorus, Blood 5.3 mg/dL (2.5-4.9); Sodium, Blood 137 mmol/L (136-145); Vancomycin, Random 18.4 ug/mL
--- NOTE | 2022-09-26 05:39 | NUR ---
PT IS A&02, RA, BEDREST, SOLANO PATENT AND DRAINING, NO COMPLAINTS OF PAIN OR DISCOMFORT THIS SHIFT, CONTINUE POC
--- NOTE | 2022-09-26 07:45 | NUR ---
DR. CAMARILLO (NEPHROLOGY) CAME BY AND SPOKE c PATIENT. PER DR. CAMARILLO PATIENT KIDNEY FUNCTION IS IMPROVING NO PLAN FOR DIALYSIS AT THIS TIME.
--- NOTE | 2022-09-26 19:14 | NUR ---
SHIFT SUMMARY: PATIENT ALERT TO SELF, CONFUSED AND LETHARGIC T/O SHIFT. CALM, PLEASANT AND COOPERATIVE c CARE. PATIENT WAS ABLE TO WORK c OT/ST TODAY. MIPELEX DRESSING CHANGED TO COCCYX. PATIENT DENIES CP/PRESSURE, N/V, SOB. RECEIVED SCHEDULED MEDS. VITAL SIGNS REVIEWED. FEEDER AND ORAL CARE DONE. PICC LINE TO JOSELUIS INFUSING D10 AT 60 MLS/HR. Q2 TURN. SOLANO PATENT DRAINING YELLOW URINE TO GRAVITY. ATTENDS CHANGED AND CATHCARE DONE. BED ALARM ON FOR SAFETY. CALL LIGHT IN REACH.
--- NOTE | 2022-09-27 04:11 | NUR ---
SHIFT SUMMARY; NO ACUTE CHANGES OVERNIGHT. THE PT WAS VERY LETHARGIC AT THE BEGINNING OF SHIFT. THE PTS CPAP WAS PUT ON WITH 3L BLEED IN O2. O2 SATS WERE 95-97%. THE PT WOKE UP AROUND 0230 AND RIPPED CPAP OFF. O2 SATS ARE 93-95% ON RA. THE PT DOES NOT VERBALLY ANSWER QUESTION AND TAKES MULTIPLE PROMPTS BEFORE SHAKING HIS HEAD YES OR NO. TELE IS IN PLACE, NSR IN THE 70'S. CURRENTLY THE PT IS SLEEPING IN BED WITH THE BED IN THE LOWEST POSITION AND THE CALL LIGHT AT BEDSIDE. THE PT DENIES ANY PAIN, CHEST PAIN/PRESSURE OR N/V THIS SHIFT.
[2022-09-27 05:44] LABS: BASOPHILS ABSOLUTE AUTO 0.02 K/mm3 (0.00-0.23); BASOPHILS PERCENT AUTO 0 % (0-2); EOSINOPHILS ABSOLUTE AUTO 0.12 K/mm3 (0.00-0.68); EOSINOPHILS PERCENT AUTO 1 % (0-6); Hematocrit 33.4 % (37.0-53.0); Hemoglobin 10.7 g/dL (13.5-17.5); IMMATURE GRAN ABSOLUTE AUTO 0.07 K/mm3 (0.00-0.10); IMMATURE GRAN PERCENT AUTO 1 % (0-1); LYMPHOCYTES PERCENT AUTO 6 % (21-46); MONOCYTES ABSOLUTE AUTO 0.76 K/mm3 (0.16-1.47); MONOCYTES PERCENT AUTO 7 % (4-13); Mean Corpuscular Volume 78 fL (80-100); Mean Platelet Volume 10.4 fL (9.1-12.4); NEUTROPHILS ABSOLUTE AUTO 8.97 K/mm3 (1.96-9.15); NEUTROPHILS PERCENT AUTO 85 % (41-73); Platelet Count 141 K/mm3 (150-400); RDW Coefficient Variation 17.3 % (11.7-14.2); RDW Standard Deviation 48.7 fL (35.1-46.3); Red Blood Cell Count 4.28 M/mm3 (4.30-5.90); White Blood Cell Count 10.54 K/mm3 (4.00-11.30)
[2022-09-27 06:10] LABS: Albumin, Blood 1.6 g/dL (3.4-5.0); Anion Gap 4 mmol/L (6-16); Blood Urea Nitrogen 85 mg/dL (8-24); Bun/Creatinine Ratio 21.5 (12.0-20.0); CO2, Blood 28 mmol/L (21-32); Calcium, Blood 8.4 mg/dL (8.5-10.1); Chloride, Blood 105 mmol/L (98-108); Creatinine, Blood 3.96 mg/dL (0.60-1.20); Glomerular Filtration Rate 16 (60-); Glucose, Blood 102 mg/dL (70-99); Potassium, Blood 4.8 mmol/L (3.5-5.5); Sodium, Blood 137 mmol/L (136-145); Vancomycin, Random 14.3 ug/mL
--- NOTE | 2022-09-27 10:37 | NUR ---
PATIENT LEFT THE ROOM AT AROUND 1030 TO MRI. PATIENT WAS TRANSPORTED VIA GURNEY BY FITTER HAND.
--- NOTE | 2022-09-27 19:25 | NUR ---
SHIFT SUMMARY: PATIENT ALERT AND ORIENTED TO SELF AND PLACE. MUMBLED AND HARD TO UNDERSTAND WHEN HE TALKED. DENIES CP/PRESSURE, N/V, SOB. PATIENT ON TELE SR HR AT 79 BPM c FIRST DEGREE BLOCKED. PATIENT HAD ONE EPISODE OF ESCAPE BEAT c HR OF 47 BPM PER MANAGER PLAN. RA DURING THE DAY, BUT WEAR CPAP AT HS AND WHEN NAPPING DURING THE DAY. PATIENT SPO2 RANGES 96-98 T/O SHIFT. ORAL CARE, Q2 TURN, AND CATH CARE DONE. SOLANO PATENT DRAINING YELLOW URINE c SOME SIDEMENTS TO GRAVITY. PICC LINE TO JOSELUIS INFUSING D10 AT 60 MLS/HR. VITAL SIGNS REVIEWED. BED ALARM ON FOR SAFETY. CALL LIGHT IN REACH.
--- NOTE | 2022-09-28 04:38 | NUR ---
SUMMARY: NO ACUTE EVENTS OVERNIGHT. PATIENT AOX2, LETHARGIC BUT RESPONSIVE. VSS. PATIENT WORE CPAP THROUGHOUT NIGHT. SOLANO IN PLACE. UPPER EXTREMITIES WELL LOWER EXTREMITIES VERY EDEMATOUS. TRIED TO KEEP THEM ELEVATED ON PILLOWS. PIC LINE IN PLACE INFUSING D10. Q6 GLUCOSE STABLE. REPOSITIONED IN BED THROUGHOUT NIGHT. ORAL CARE PROVIDED AFTER ALL MEDS. BED ALARM COMMERCIAL ESTIMATOR LIGHT IN REACH.
[2022-09-28 05:48] LABS: BASOPHILS ABSOLUTE AUTO 0.01 K/mm3 (0.00-0.23); BASOPHILS PERCENT AUTO 0 % (0-2); EOSINOPHILS PERCENT AUTO 1 % (0-6); Hematocrit 34.1 % (37.0-53.0); Hemoglobin 10.8 g/dL (13.5-17.5); IMMATURE GRAN ABSOLUTE AUTO 0.07 K/mm3 (0.00-0.10); IMMATURE GRAN PERCENT AUTO 1 % (0-1); LYMPHOCYTES ABSOLUTE AUTO 0.45 K/mm3 (0.84-5.20); LYMPHOCYTES PERCENT AUTO 4 % (21-46); MONOCYTES ABSOLUTE AUTO 0.89 K/mm3 (0.16-1.47); MONOCYTES PERCENT AUTO 8 % (4-13); Mean Corpuscular HGB 24.9 pg (26.0-34.0); Mean Corpuscular HGB Conc 31.7 g/dL (31.5-36.5); Mean Corpuscular Volume 79 fL (80-100); NEUTROPHILS PERCENT AUTO 86 % (41-73); Platelet Count 161 K/mm3 (150-400); RDW Coefficient Variation 17.4 % (11.7-14.2); RDW Standard Deviation 48.9 fL (35.1-46.3); Red Blood Cell Count 4.33 M/mm3 (4.30-5.90); White Blood Cell Count 11.02 K/mm3 (4.00-11.30)
[2022-09-28 08:29] LABS: Albumin, Blood 1.7 g/dL (3.4-5.0); Anion Gap 3 mmol/L (6-16); Blood Urea Nitrogen 74 mg/dL (8-24); Bun/Creatinine Ratio 20.2 (12.0-20.0); CO2, Blood 27 mmol/L (21-32); Calcium, Blood 8.5 mg/dL (8.5-10.1); Chloride, Blood 106 mmol/L (98-108); Creatinine, Blood 3.66 mg/dL (0.60-1.20); Glomerular Filtration Rate 17 (60-); Glucose, Blood 142 mg/dL (70-99); Phosphorus, Blood 4.5 mg/dL (2.5-4.9); Potassium, Blood 4.9 mmol/L (3.5-5.5); Sodium, Blood 136 mmol/L (136-145); Vancomycin, Random 12.1 ug/mL
--- NOTE | 2022-09-28 15:44 | NUR ---
SHIFT SUMMARY: NO NEW ACUTE CHANGES IN PATIENT CONDITION THIS SHIFT. PATIENT A&OX2. CONTINOUS TO BE LETHARGIC T/O SHIFT BUT RESPONSE TO VERBAL STIMULI. RECEIVED BEDBATH AND LINEN CHANGED THIS SHIFT. PATIENT WAS PLACED ON CPAP T/O THE DAY WHEN NAPPING. OTHERWISE, WHEN AWAKE PATIENT IS ON RA c OXYGENATION RANGES 93-95%. DENIES CP/PRESSURE, SOB, N/V. PATIENT STILL A FEEDER c POOR ORAL INTAKE. MIPELEX DRESSING CHANGED TO COCCYX. PATIENT STILL VERY EDEMATOUS T/O. SOLANO PATENT DRAINING YELLOW URINE c SEDIMENTS TO GRAVITY. Q2 TURN, ORAL AND CATH CARE T/O SHIFT. VITAL SIGNS REVIEWED. RECEIVED SCHEDULED MEDS PER EMAR. PICCLINE TO JOSELUIS INFUSING D10 AT 60 NLS/HR. BED ALARM ON FOR SAFETY. CALL LIGHT IN REACH.
[2022-09-29 05:27] LABS: BASOPHILS ABSOLUTE AUTO 0.01 K/mm3 (0.00-0.23); BASOPHILS PERCENT AUTO 0 % (0-2); EOSINOPHILS ABSOLUTE AUTO 0.12 K/mm3 (0.00-0.68); EOSINOPHILS PERCENT AUTO 1 % (0-6); Hematocrit 35.3 % (37.0-53.0); Hemoglobin 11.2 g/dL (13.5-17.5); IMMATURE GRAN ABSOLUTE AUTO 0.05 K/mm3 (0.00-0.10); IMMATURE GRAN PERCENT AUTO 1 % (0-1); LYMPHOCYTES ABSOLUTE AUTO 0.53 K/mm3 (0.84-5.20); LYMPHOCYTES PERCENT AUTO 5 % (21-46); MONOCYTES ABSOLUTE AUTO 0.81 K/mm3 (0.16-1.47); MONOCYTES PERCENT AUTO 8 % (4-13); Mean Corpuscular HGB Conc 31.7 g/dL (31.5-36.5); Mean Corpuscular Volume 79 fL (80-100); Mean Platelet Volume 10.3 fL (9.1-12.4); NEUTROPHILS ABSOLUTE AUTO 8.99 K/mm3 (1.96-9.15); NEUTROPHILS PERCENT AUTO 86 % (41-73); Platelet Count 180 K/mm3 (150-400); RDW Coefficient Variation 17.5 % (11.7-14.2); RDW Standard Deviation 49.7 fL (35.1-46.3); Red Blood Cell Count 4.48 M/mm3 (4.30-5.90); White Blood Cell Count 10.51 K/mm3 (4.00-11.30)
--- NOTE | 2022-09-29 05:52 | NUR ---
SUMMARY: PT VERY DROWSY/SOMNOLENT AND IS WAKEFUL TO VOICE BUT ONLY FOR BRIEF PERIODS. HE ATTEMPTED TO ANSWER Q'S BUT IS DIFFICULT TO UNDERSTAND AT TIMES D/T GARBLED AND SLURRED SPEECH. PT HAS HX OF CVA W/VERY PROMINENT R.FACIAL DROOP. ASPIRATION PREC'S WERE MAINTAINED AND PILLS CRUSHED IN APPLESAUCE/ PUDDING BUT PT HAD TROUBLE SWALLOWING THEM THIS SHIFT. HE POCKETED BITES, HAD DIFFICULTY FOLLOWING INSTRUCTION AND WAS OBSERVED COUGHING W/ATTEMPTS. HE WAS SEEN DROOLING AT TIMES BUT ALSO APPEARED TO SWALLOW SALIVA W/O ISSUES. PT MADE NPO AND MAY NEED SPEECH REEVALUATION. Q6H CBG'S STABLE. TURN SCHEDULE MAINTAINED, ORAL CARE COMPLETED AND PT SUCTIONED PRN. EXT'S AND SCROTUM ELVATED D/T EDEMA. CREAM APPLIED TO AREAS OF EXCORIATION. PT TOLERATED CPAP AT HS W/CONT BIOX INTACT. SOLANO IS PATENT/DRAINING YELLOW URINE W/SEDIMENT. D10 INFUSES AT 60 ML/HR VIA PICC LINE. TELE INTACT: NSR AT 80'S BPM (LOW 40'S BUT RECOVERED SPONTANEOUSLY). NO ACUTE CHANGES, VSS/AFEBRILE. WCTM AND REPORT TO DAY RN.
[2022-09-29 06:00] LABS: Albumin, Blood 1.6 g/dL (3.4-5.0); Anion Gap 2 mmol/L (6-16); Blood Urea Nitrogen 71 mg/dL (8-24); Bun/Creatinine Ratio 21.3 (12.0-20.0); CO2, Blood 27 mmol/L (21-32); Calcium, Blood 8.8 mg/dL (8.5-10.1); Chloride, Blood 107 mmol/L (98-108); Creatinine, Blood 3.33 mg/dL (0.60-1.20); Glomerular Filtration Rate 19 (60-); Glucose, Blood 130 mg/dL (70-99); Phosphorus, Blood 4.3 mg/dL (2.5-4.9); Potassium, Blood 4.7 mmol/L (3.5-5.5); Sodium, Blood 136 mmol/L (136-145); Vancomycin, Random 21.2 ug/mL
--- NOTE | 2022-09-29 16:17 | NUR ---
SHIFT SUMMARY PATIENT REMAINS VERY DROWSY/ SOMNOLENT. RECEIVED REPORT THAT PATIENT IS ASPIRATION RISK. PATIENT KEPT NPO UNTIL SPEECH THERAPY CLEARED PT FOR MEDICATIONS/DIET. PATIENT HAD ALL ORAL MEDICATIONS HELD DUE TO THIS. PATIENTS WAS EDUATED ON REASON FOR NPO STATUS. SPEECH THERAPIST ATTEMPTED TO SEE PATIENT AND PATIENT WAS NOT ALERT ENOUGH TO BE EVALUATED. PATIENT IS STILL NPO. D10 IS STILL INFUSING. PATIENT TURNED Q2. SOLANO IS INTACT AND DRAINING TO GRAVITY. PATIENT HAS NOT COMPLAINED OF PAIN, NAUSEA, SOB OR VOMITTING THIS SHIFT. BED IN LOCKED AND LOWEST POSITION. CALL LIGHT IN PLACE. WILL MONITOR UNTIL SHIFT CHANGE.
--- NOTE | 2022-09-30 03:41 | NUR ---
COMPUTER APPLICATIONS ENGINEER SUMMARY NO ACUTE CHANGES THROUGHOUT THE NIGHT. A&O TO SELF. PATIENT RESPONDS WELL TO YES/NO QUESTIONS. DEXTROSE 10% INFUSING THROUGH LUE PICC. NO SIGNS OR SYMPTOMS OF PAIN. SOLANO CATHETER DRAINING TO GRAVITY. Q2-HOUR TURNING SCHEDULED MAINTAINED. BED LOW AND LOCKED. CALL LIGHT WITHIN REACH. INCREASED ROUNDING PERFORMED. THIS RN WILL CONTINUE TO MONITOR.
[2022-09-30 05:48] LABS: BASOPHILS ABSOLUTE AUTO 0.02 K/mm3 (0.00-0.23); BASOPHILS PERCENT AUTO 0 % (0-2); EOSINOPHILS ABSOLUTE AUTO 0.07 K/mm3 (0.00-0.68); EOSINOPHILS PERCENT AUTO 1 % (0-6); Hematocrit 34.6 % (37.0-53.0); IMMATURE GRAN ABSOLUTE AUTO 0.05 K/mm3 (0.00-0.10); IMMATURE GRAN PERCENT AUTO 1 % (0-1); LYMPHOCYTES ABSOLUTE AUTO 0.58 K/mm3 (0.84-5.20); LYMPHOCYTES PERCENT AUTO 5 % (21-46); MONOCYTES ABSOLUTE AUTO 0.83 K/mm3 (0.16-1.47); MONOCYTES PERCENT AUTO 8 % (4-13); Mean Corpuscular HGB 25.1 pg (26.0-34.0); Mean Corpuscular HGB Conc 31.8 g/dL (31.5-36.5); Mean Corpuscular Volume 79 fL (80-100); Mean Platelet Volume 10.6 fL (9.1-12.4); NEUTROPHILS ABSOLUTE AUTO 9.28 K/mm3 (1.96-9.15); NEUTROPHILS PERCENT AUTO 86 % (41-73); Platelet Count 199 K/mm3 (150-400); RDW Coefficient Variation 17.2 % (11.7-14.2); Red Blood Cell Count 4.38 M/mm3 (4.30-5.90); White Blood Cell Count 10.83 K/mm3 (4.00-11.30)
[2022-09-30 06:12] LABS: Albumin, Blood 1.5 g/dL (3.4-5.0); Anion Gap 4 mmol/L (6-16); Blood Urea Nitrogen 63 mg/dL (8-24); Bun/Creatinine Ratio 18.9 (12.0-20.0); CO2, Blood 27 mmol/L (21-32); Calcium, Blood 8.8 mg/dL (8.5-10.1); Chloride, Blood 106 mmol/L (98-108); Creatinine, Blood 3.34 mg/dL (0.60-1.20); Glomerular Filtration Rate 19 (60-); Glucose, Blood 119 mg/dL (70-99); Phosphorus, Blood 4.1 mg/dL (2.5-4.9); Potassium, Blood 4.8 mmol/L (3.5-5.5); Sodium, Blood 137 mmol/L (136-145); Vancomycin, Random 16.1 ug/mL
--- NOTE | 2022-09-30 12:15 | NUR ---
CASE CONF WITH RN &CM, REPORTS PT CONTINUES TO DECLINE AND PT EX-, FABRIZIO IS AT THE BEDSIDE. TENT DC PLAN TO DC TO SNF, UNKNOWN AT THIS TIME IF PT WILL BE AGREEABLE TO THIS AND NEED TO ESTABLISH A DECISION MAKER PT CONT TO SHOW DECLINE AND LETHARGIC. PT SLEEPING WHEN I ENTER THE ROOM AND DOES NOT WAKE UP WHEN I SPEAK TO HIM. FABRIZIO, PT EX- IS AT THE BEDSIDE, FEELING VERY OVERWHELMED TODAY. I INTRODUCE MYSELF AND PROVIDE EDUCATION ON WHAT PALLIATIVE CARE IS. FABRIZIO IS OPEN TO VISITS, HOWEVER SHE IS FEELING OVERHWELMED WITH VISITS FROM PT, OT, DR, NURSE, ETC AND NEEDS A BREAK. PROVIDED MY CARD WITH CONTACT INFORMATION TP HER AND ADVISED I WILL MAKE ANOTHER VISIT LATER TODAY OR TOMORROW. FABRIZIO ASKS FOR A VISIT TOMORROW, MAKES SURE I WILL RETURN TOMORROW AND IS VERY GRATEFUL FOR MY TIME AND UNDERSTANDING. PALLIATIVE CARE WILL CONTINUE TO FOLLOW.
--- NOTE | 2022-09-30 18:27 | NUR ---
SHIFT SUMMARY PT SLEEPING AT START OF SHIFT AND MOST OF DAY. WOKE BRIEFLY FOR CARE NEEDED. PT IS CONFUSED, DISORIENTED, AND DIFFICULT TO UNDERSTAND. PT FAILED SP EVAL AGAIN TODAY. BED BATH AND LINEN CHANGED X2 TODAY. RUSS MEYERS D/C'D PER INFECTION CONTROL. V/O FROM DR PIERCE TO SEE HOW PT DOES. PER COMMUNITY MENTAL HEALTH WORKER, PT IS HEAVY WETTER. GROIN/DARELL AREA VERY RED AND EXCORIATED. BODY WIDE SCABS EVERYWHERE. SR ON TELE, PER MX TECH. 5TH DIGIT ON R FOOT BLACK WITH FOUL SMELLING INFECTION. PT'S EX IN RM AT BS OFF AND ON THUR OUT THE DAY. NO C/O PAIN. NO S/SX'S OF DISTRESS NOTED OR REPORTED. CALL LT IN REACH. BED ALARM ON FOR SAFETY.
--- NOTE | 2022-10-01 04:56 | NUR ---
SHIFT SUMMARY; NO ACUTE CHANGES OVERNIGHT. THE PT IS AXO X1 ONLY AND VERY SOMNOLENT THIS PM. THE PT HAS BEEN LAYING IN BED FOR THE ENTIRETY OF THE NIGHT. THE PT OPENS HIS EYES TO VERBAL STIMULI BUT DOES NOT RESPOND. THE PT CURRENTLY HAS 2L NC ON HE REFUSED TO WEAR HIS CPAP LAST NIGHT. THE PTS O2 SATS HAVE BEEN >92% ON 2L NC. THE PT DENIES ANY PAIN, OTHER THAN WHEN WIPING HIS EXCORIATED DARELL AREA, WELL THE PT DOES NOT APPEAR TO BE SOB. CURRENTLY THE PT IS SLEEPING IN BED WITH THE BED IN THE LOWEST POSITION AND THE CALL LIGHT AT BEDSIDE.
[2022-10-01 05:59] LABS: BASOPHILS ABSOLUTE AUTO 0.02 K/mm3 (0.00-0.23); BASOPHILS PERCENT AUTO 0 % (0-2); EOSINOPHILS ABSOLUTE AUTO 0.21 K/mm3 (0.00-0.68); EOSINOPHILS PERCENT AUTO 2 % (0-6); Hematocrit 32.1 % (37.0-53.0); Hemoglobin 10.1 g/dL (13.5-17.5); IMMATURE GRAN ABSOLUTE AUTO 0.04 K/mm3 (0.00-0.10); IMMATURE GRAN PERCENT AUTO 0 % (0-1); LYMPHOCYTES ABSOLUTE AUTO 0.59 K/mm3 (0.84-5.20); LYMPHOCYTES PERCENT AUTO 6 % (21-46); MONOCYTES ABSOLUTE AUTO 0.61 K/mm3 (0.16-1.47); MONOCYTES PERCENT AUTO 6 % (4-13); Mean Corpuscular HGB 24.9 pg (26.0-34.0); Mean Corpuscular HGB Conc 31.5 g/dL (31.5-36.5); Mean Corpuscular Volume 79 fL (80-100); Mean Platelet Volume 10.3 fL (9.1-12.4); NEUTROPHILS ABSOLUTE AUTO 8.71 K/mm3 (1.96-9.15); NEUTROPHILS PERCENT AUTO 86 % (41-73); Platelet Count 211 K/mm3 (150-400); RDW Standard Deviation 48.5 fL (35.1-46.3); Red Blood Cell Count 4.06 M/mm3 (4.30-5.90); White Blood Cell Count 10.18 K/mm3 (4.00-11.30)
[2022-10-01 06:17] LABS: Albumin, Blood 1.5 g/dL (3.4-5.0); Anion Gap 4 mmol/L (6-16); Blood Urea Nitrogen 59 mg/dL (8-24); Bun/Creatinine Ratio 18.2 (12.0-20.0); CO2, Blood 27 mmol/L (21-32); Calcium, Blood 8.5 mg/dL (8.5-10.1); Chloride, Blood 107 mmol/L (98-108); Creatinine, Blood 3.25 mg/dL (0.60-1.20); Glomerular Filtration Rate 20 (60-); Glucose, Blood 120 mg/dL (70-99); Phosphorus, Blood 4.2 mg/dL (2.5-4.9); Potassium, Blood 4.5 mmol/L (3.5-5.5); Sodium, Blood 138 mmol/L (136-145); Vancomycin, Random 20.8 ug/mL
--- NOTE | 2022-10-01 12:03 | NUR ---
Pt minimally responsive at bedside. We reviewed his care needs. She is hoping he will wake up soon and will be able to rehab. Review of his health hisory. Pt has been in the hospital many times and critically ill. She states he has not taken care of his diabetes very well in the past. They have a son who helps them out but she is his decision maker. She was getting to distraught by the conversation so advised he we will need to talk more about his wishes for future care. Pt high risk for readmission. Will continue to follow.
--- NOTE | 2022-10-01 18:37 | NUR ---
SHIFT SUMMARY- PT IS ALERT, PLESANT AND COOPERATIVE. SPEECH THERAPY SAW THE PT AND ADVANCED HIS DIET. FAMILY WAS AT BEDSIDE THIS SHIFT FOR A SHORT WHILE. HE SLEPT MOST OF THIS SHIFT. DR. BROWN WAS CONSULTED ABOUT SWELLING OF THE L KNEE, JOINT WAS ASPIRATED AND FLUID WAS SENT TO THE LAB. HIS BED IS IN THE LOW POSITION AND CALL LIGHT IS WITHIN REACH.
[2022-10-01 18:39] LABS: BODY FLUID RBC 0.004 M/mm3 (0-0)
[2022-10-01 18:53] LABS: RBC Count, Synovial Fluid 4000 /mm3 (0-0)
[2022-10-01 18:55] LABS: WBC Count, Synovial Fluid 13740 /mm3 (0-180)
[2022-10-01 20:32] LABS: Lymphs, Synovial Fluid 3 % (0-15); Monocytes/Macrophages, Synovia 4 % (0-65); Neutrophils, Synovial Fluid 93 % (0-24)
[2022-10-01 20:33] LABS: Appearance, Synovial Fluid Cloudy (Clear); Color, Synovial Fluid Yellow (None-P Yel)
--- NOTE | 2022-10-02 05:13 | NUR ---
SHIFT SUMMARY NOC PT A/O TO SELF. IV DEXTROSE WAS DC AND BLOOD GLUCOSE CHECKS NO AC/HS DUE TO DIETARY STATUS CHANGE. PT HS CBG WAS 106. PT REFUSED TO KEEP OXYGEN ON AND SPO2 ON RA WAS > 95%. PT REPEATEDLY TAKES OFF SPO2 BIOX PROBE. PT ON TELE AT NSR @ 71 BPM. PT HAD INC BM X 2. PT HAS SEVERE EXCORIATION IN GROIN/DARELL AREA AND CREAM WAS APPLIED AND LEFT OPEN TO ROOM AIR. PT EVENING PROBIOTIC MIXED WITH APPLESAUCE WAS TOLERATED WELL. PT IS CURRENTLY RESTING WITH BED IN LOWEST POSITION AND CALL LIGHT WITHIN REACH.
[2022-10-02 06:48] LABS: BASOPHILS ABSOLUTE AUTO 0.02 K/mm3 (0.00-0.23); BASOPHILS PERCENT AUTO 0 % (0-2); EOSINOPHILS ABSOLUTE AUTO 0.22 K/mm3 (0.00-0.68); EOSINOPHILS PERCENT AUTO 2 % (0-6); Hematocrit 33.5 % (37.0-53.0); Hemoglobin 10.4 g/dL (13.5-17.5); IMMATURE GRAN ABSOLUTE AUTO 0.04 K/mm3 (0.00-0.10); IMMATURE GRAN PERCENT AUTO 0 % (0-1); LYMPHOCYTES ABSOLUTE AUTO 0.56 K/mm3 (0.84-5.20); LYMPHOCYTES PERCENT AUTO 5 % (21-46); MONOCYTES ABSOLUTE AUTO 0.55 K/mm3 (0.16-1.47); MONOCYTES PERCENT AUTO 5 % (4-13); Mean Corpuscular HGB 24.7 pg (26.0-34.0); Mean Corpuscular Volume 80 fL (80-100); Mean Platelet Volume 10.5 fL (9.1-12.4); NEUTROPHILS ABSOLUTE AUTO 10.04 K/mm3 (1.96-9.15); NEUTROPHILS PERCENT AUTO 88 % (41-73); Platelet Count 252 K/mm3 (150-400); RDW Coefficient Variation 16.9 % (11.7-14.2); RDW Standard Deviation 48.8 fL (35.1-46.3); Red Blood Cell Count 4.21 M/mm3 (4.30-5.90); White Blood Cell Count 11.43 K/mm3 (4.00-11.30)
[2022-10-02 07:08] LABS: Albumin, Blood 1.7 g/dL (3.4-5.0); Anion Gap 2 mmol/L (6-16); Blood Urea Nitrogen 59 mg/dL (8-24); Bun/Creatinine Ratio 19.8 (12.0-20.0); CO2, Blood 28 mmol/L (21-32); Calcium, Blood 8.7 mg/dL (8.5-10.1); Chloride, Blood 106 mmol/L (98-108); Creatinine, Blood 2.98 mg/dL (0.60-1.20); Glomerular Filtration Rate 22 (60-); Glucose, Blood 89 mg/dL (70-99); Phosphorus, Blood 3.9 mg/dL (2.5-4.9); Sodium, Blood 136 mmol/L (136-145); Vancomycin, Random 18.6 ug/mL
--- NOTE | 2022-10-02 18:43 | NUR ---
SHIFT SUMMARY- PT IS ALERT, PLESANT AND COOPERATIVE. HE IS MORE ALERT THAN PREVIOUS SHIFT. ATTEMPTED TO EXIT BED SEVERAL TIMES THIS SHIFT. WORKED WITH PT AND OT THIS SHIFT AND TOLORATED WELL. HIS BED IS IN THE LOW POSITION AND CALL LIGHT IS WITIN REACH.
[2022-10-03 04:44] LABS: BASOPHILS ABSOLUTE AUTO 0.03 K/mm3 (0.00-0.23); BASOPHILS PERCENT AUTO 0 % (0-2); EOSINOPHILS ABSOLUTE AUTO 0.19 K/mm3 (0.00-0.68); EOSINOPHILS PERCENT AUTO 2 % (0-6); Hematocrit 33.4 % (37.0-53.0); Hemoglobin 10.5 g/dL (13.5-17.5); IMMATURE GRAN ABSOLUTE AUTO 0.06 K/mm3 (0.00-0.10); IMMATURE GRAN PERCENT AUTO 1 % (0-1); LYMPHOCYTES ABSOLUTE AUTO 0.53 K/mm3 (0.84-5.20); LYMPHOCYTES PERCENT AUTO 4 % (21-46); MONOCYTES ABSOLUTE AUTO 0.58 K/mm3 (0.16-1.47); MONOCYTES PERCENT AUTO 5 % (4-13); Mean Corpuscular HGB 25.1 pg (26.0-34.0); Mean Corpuscular HGB Conc 31.4 g/dL (31.5-36.5); Mean Corpuscular Volume 80 fL (80-100); Mean Platelet Volume 10.4 fL (9.1-12.4); NEUTROPHILS ABSOLUTE AUTO 11.31 K/mm3 (1.96-9.15); NEUTROPHILS PERCENT AUTO 89 % (41-73); Platelet Count 274 K/mm3 (150-400); RDW Coefficient Variation 16.7 % (11.7-14.2); RDW Standard Deviation 47.4 fL (35.1-46.3); Red Blood Cell Count 4.19 M/mm3 (4.30-5.90)
--- NOTE | 2022-10-03 05:00 | NUR ---
SUMMARY: PATIENT MORE ALERT THIS EVENING THAN HE HAS BEEN. SPEECH VERY MUMBLED AND HARD TO UNDERSTAND. PATIENT CONFUSED THIS EVENING, VERY PLEASANT WITH STAFF AND EASILY REDIRECTABLE. PATIENT HAS A LARGE RASH ON HIS BACK. CALLED AND NOTIFIED HOSPITALIST RECIEVED 1X DOSE OF BENADRYL. LABS DRAWN FROM [facility]. VSS. PATIENT RESTING IN BED, CALL LIGHT IN REACH BED ALARM ON.
[2022-10-03 05:05] LABS: Albumin, Blood 1.8 g/dL (3.4-5.0); Anion Gap 2 mmol/L (6-16); Blood Urea Nitrogen 64 mg/dL (8-24); Bun/Creatinine Ratio 21.5 (12.0-20.0); CO2, Blood 29 mmol/L (21-32); Calcium, Blood 8.6 mg/dL (8.5-10.1); Chloride, Blood 106 mmol/L (98-108); Creatinine, Blood 2.98 mg/dL (0.60-1.20); Glomerular Filtration Rate 22 (60-); Glucose, Blood 116 mg/dL (70-99); Phosphorus, Blood 3.6 mg/dL (2.5-4.9); Potassium, Blood 4.5 mmol/L (3.5-5.5); Sodium, Blood 137 mmol/L (136-145); Vancomycin, Random 15.9 ug/mL
[2022-10-03] MEDS ORDERED: EUTHYROX50 MCG PO (12:03)
[2022-10-03] MEDS ORDERED: LOKELMA10 GM PO (12:04)
[2022-10-03] MEDS ORDERED: SEVELAMER CARB PO (12:04)
[2022-10-03] MEDS ORDERED: AMLO5 PO (12:05)
[2022-10-03] MEDS ORDERED: AMOCLA875 PO (12:06)
[2022-10-03] MEDS ORDERED: SOAANZ40 M1 PO (12:06)
[2022-10-03 13:58] LABS: Base Excess Venous 0.3 mmol/L; Bicarbonate Venous 24.2 mmol/L (24.0-30.0); PCO2 Venous 54.9 mmHg (38-42)
[2022-10-03 16:47] LABS: Influenza A, PCR NEGATIVE (NEGATIVE); Influenza B, PCR NEGATIVE (NEGATIVE); Resp Syncytial Virus, PCR NEGATIVE (NEGATIVE); SARS-Cov-2 (COVID-19) PCR, MMC NEGATIVE (NEGATIVE)
--- NOTE | 2022-10-03 20:12 | NUR ---
SHIFT SUMMARY PT VERY SOMNOLENT TODAY. PT EASY TO ROUSE BUT PT DOES NOT APPEAR TO COMPREHEND SURROUNDINGS. PT GOES BACK TO SLEEP QUICKLY. OFTEN UNABLE TO FOLLOW COMMANDS. VERY RESTLESS AND ITCHY. DR PIERCE NOTIFIED IN MORNING BUT WANTED TO TRY NON PHARMACOLOGICAL INTERVENTIONS. LOTION APPLIED SEVERAL TIMES, COOLING PAD, MEPALEX DRESSING PLACED OVER EXCORIATED ARE, AND SOCK PLACED ON HANDS. PT CONTINUED TO RUB BACK ON SHEETS AND SCRATCH. DR PIERCE CAME TO ASSESS PT IN ROOM. ORDERS GIVEN AND PT MEDICAED PER EMAR FOR ITCHING. PT PLACED ON BPAP. PT FREQUENTLY PULLED AT TUBE AND DISCONETED BPAP, HOWEVER PT WAS ABLE TO WEAR IT FOR SEVERAL HOURS AND DID BECOME MORE ALERT. PT ABLE TO EAT SOME DINNER. PT DIFFICULT TO KEEP COMFORABLE AND REQUIRES NURSE IN ROOM OFTEN. BED IN LOWEST POSITION AND BED ALARM ON.
--- NOTE | 2022-10-04 01:00 | NUR ---
PATIENT PULLED OUT HIS POWER PICC. TIP INTACT, SITE WNL.
[2022-10-04 06:30] LABS: BASOPHILS ABSOLUTE AUTO 0.04 K/mm3 (0.00-0.23); BASOPHILS PERCENT AUTO 0 % (0-2); EOSINOPHILS ABSOLUTE AUTO 0.03 K/mm3 (0.00-0.68); EOSINOPHILS PERCENT AUTO 0 % (0-6); Hematocrit 34.4 % (37.0-53.0); Hemoglobin 10.8 g/dL (13.5-17.5); IMMATURE GRAN ABSOLUTE AUTO 0.09 K/mm3 (0.00-0.10); IMMATURE GRAN PERCENT AUTO 1 % (0-1); LYMPHOCYTES ABSOLUTE AUTO 0.35 K/mm3 (0.84-5.20); LYMPHOCYTES PERCENT AUTO 2 % (21-46); MONOCYTES ABSOLUTE AUTO 0.58 K/mm3 (0.16-1.47); MONOCYTES PERCENT AUTO 4 % (4-13); Mean Corpuscular HGB Conc 31.4 g/dL (31.5-36.5); Mean Corpuscular Volume 80 fL (80-100); Mean Platelet Volume 10.5 fL (9.1-12.4); NEUTROPHILS ABSOLUTE AUTO 14.52 K/mm3 (1.96-9.15); NEUTROPHILS PERCENT AUTO 93 % (41-73); Platelet Count 249 K/mm3 (150-400); RDW Coefficient Variation 16.9 % (11.7-14.2); RDW Standard Deviation 48.8 fL (35.1-46.3); Red Blood Cell Count 4.32 M/mm3 (4.30-5.90); White Blood Cell Count 15.61 K/mm3 (4.00-11.30)
[2022-10-04 06:57] LABS: Albumin, Blood 1.9 g/dL (3.4-5.0); Anion Gap 5 mmol/L (6-16); Blood Urea Nitrogen 56 mg/dL (8-24); Bun/Creatinine Ratio 18.3 (12.0-20.0); CO2, Blood 25 mmol/L (21-32); Calcium, Blood 8.7 mg/dL (8.5-10.1); Chloride, Blood 109 mmol/L (98-108); Creatinine, Blood 3.06 mg/dL (0.60-1.20); Glomerular Filtration Rate 22 (60-); Glucose, Blood 75 mg/dL (70-99); Phosphorus, Blood 3.5 mg/dL (2.5-4.9); Potassium, Blood 4.2 mmol/L (3.5-5.5); Sodium, Blood 139 mmol/L (136-145); Vancomycin, Random 20.8 ug/mL
[2022-10-04 14:53] LABS: Base Excess Venous -1.4 mmol/L; PCO2 Venous 49.9 mmHg (38-42); pH Blood Venous 7.31 (7.34-7.37)
--- NOTE | 2022-10-04 17:54 | NUR ---
TRANSFER NOTE PT TRANSFERRED TO PCU, REPORT GIVEN TO BETZY.
--- NOTE | 2022-10-04 17:55 | NUR ---
SHIFT SUMMARY PT TRANSFERRED TO PCU, TEMPERATURE WAS HOLDING AT 95.1. TRANSFERRED TO WARMING. PT ALSO SLIGHTLY HYPOGLYCEMIC AND SOMNOLENT. SEPSIS SUSPECTED. REPORT PROVIDED TO PCU NURSE.
--- NOTE | 2022-10-04 18:17 | NUR ---
pt altered in mental staus, pt hypothermic without shivering. Pt blood sugar dropping. review of pt with nursing. updated physician request labs telemetry and possible transfer. Several calls to family unable to reach them. pt moved to pcu. kps score is 30% pt high risk for cardiac event or decline. Will suggest hospice.
[2022-10-04 18:27] LABS: Cortisol, AM 21.8 ug/dL (6.7-22.6)
--- NOTE | 2022-10-04 18:29 | NUR ---
ASSUMED PT CARE [facility] MEDICAL FLOOR. PT IS DROWSY BUT WAKES TO VERBAL SITMULI. PT NOTED TO HAVE 3+ PITTING EDEMA THAT EXTENDS TO HIPS. RECTAL TEMP NOTED ON ARRIVAL TO BE 90.9. UNABLE TO ESTABLISH SOLANO TEMP PROBE PT ANATOMY WILL NOT ALLOW FOR 16FR PROBE TO BE PASSED THROUGH [facility]. RECTAL TEMP IS PLACED PT PLACED IN KEREN GGER WITH MULTIPLE BLANKETS AND BODY TEMP IS SLOWLY RISING TO 91.1 AT THIS TIME. PT ARRIVED WITH NO FLUIDS INFUSING THERE WAS NO IV ESTABLISHED ON ARRIVAL. IV WAS EVENTUALLY ESTABLISHED AT THIS TIME, ANTIBIOTICS ARE NOW INFUSING.
--- NOTE | 2022-10-04 21:38 | NUR ---
ASSUMPTION OF CARE THIS RN ASSUMED CARE OF PATIENT AT 1900. REPORT TAKEN AT BEDSIDE WITH BETZY TAN. D10 GTT STARTED AT SHIFT CHANGE. CBG CHECKED AFTER SHIFT CHANGE WITH GLUCOSE OF 80. NO ORDER FOR CBG CHECKS OTHER THAN ACHS AT TIME OF SHIFT CHANGE. CALL PLACED TO MD KIM WITH ORDER FOR Q4 CBG CHECKS. THIS RN RECHECKED GLUCOSE AT 2130 TO ENSURE GLUCOSE WAS TRENDING UP, GLUCOSE 95 AT THIS TIME, WILL RESUME Q4 CHECKS. WARMER COVERING PATIENT BLANKETS ON TOP. RECTAL TEMP PROBE IN PLACE. TEMP 92.0 AT TIME OF SHIFT CHANGE AT 1900. THIS RN WRITES THIS NOTE AT 0 THE TEMP IS 95.5. BP STABLE. NSR ON MONITOR WITH HR 60-70'S. PATIENT REMAINS LETHARGIC BUT OCCASIONALLY APPEARS TO MOAN YES/NO APPROPRIATELY TO QUESTIONS AND OPENS EYES SPONTANEOUSLY. WAS ABLE TO ROLL HIMSELF TO THE SIDE WHEN ASKED BUT DID FALL ASLEEP QUICKLY WHILE ON HIS SIDE. NEW MEPILEX PLACED ON COCCYX. HEEL PROTECTORS PLACED ON BILAT HEELS. MEPILEX PLACED ON INNER LEFT TAVERAS SORE. NYSTATIN CREAM TO GROIN AREA AND ABDOMINAL FOLDS. ORAL CARE VIA SUCTION DONE. HOB ELEVATED. CALL LIGHT WITHIN REACH AND BED ALARM ON. BED IN LOWEST POSITION.
[2022-10-05 05:01] LABS: BASOPHILS ABSOLUTE AUTO 0.04 K/mm3 (0.00-0.23); BASOPHILS PERCENT AUTO 0 % (0-2); EOSINOPHILS ABSOLUTE AUTO 0.05 K/mm3 (0.00-0.68); EOSINOPHILS PERCENT AUTO 0 % (0-6); Hematocrit 32.1 % (37.0-53.0); Hemoglobin 10.1 g/dL (13.5-17.5); IMMATURE GRAN ABSOLUTE AUTO 0.04 K/mm3 (0.00-0.10); IMMATURE GRAN PERCENT AUTO 0 % (0-1); LYMPHOCYTES ABSOLUTE AUTO 0.52 K/mm3 (0.84-5.20); LYMPHOCYTES PERCENT AUTO 4 % (21-46); MONOCYTES ABSOLUTE AUTO 0.61 K/mm3 (0.16-1.47); MONOCYTES PERCENT AUTO 5 % (4-13); Mean Corpuscular HGB 24.7 pg (26.0-34.0); Mean Corpuscular HGB Conc 31.5 g/dL (31.5-36.5); Mean Corpuscular Volume 79 fL (80-100); NEUTROPHILS ABSOLUTE AUTO 11.57 K/mm3 (1.96-9.15); NEUTROPHILS PERCENT AUTO 90 % (41-73); Platelet Count 265 K/mm3 (150-400); RDW Standard Deviation 48.4 fL (35.1-46.3); Red Blood Cell Count 4.09 M/mm3 (4.30-5.90); White Blood Cell Count 12.83 K/mm3 (4.00-11.30)
[2022-10-05 05:21] LABS: Albumin, Blood 1.8 g/dL (3.4-5.0); Anion Gap 3 mmol/L (6-16); Blood Urea Nitrogen 67 mg/dL (8-24); Bun/Creatinine Ratio 20.1 (12.0-20.0); CO2, Blood 27 mmol/L (21-32); Calcium, Blood 8.4 mg/dL (8.5-10.1); Chloride, Blood 108 mmol/L (98-108); Creatinine, Blood 3.34 mg/dL (0.60-1.20); Glomerular Filtration Rate 19 (60-); Glucose, Blood 107 mg/dL (70-99); Phosphorus, Blood 4.7 mg/dL (2.5-4.9); Potassium, Blood 4.5 mmol/L (3.5-5.5); Sodium, Blood 138 mmol/L (136-145)
--- NOTE | 2022-10-05 06:24 | NUR ---
PATIENT UPDATE/STIVEN HERNANDEZ EVENT 0445: THIS RN AT BEDSIDE ATTEMPTING REDIRECTION FOR PATIENT D/T AGGITATION, PARANOIA, THRASHING IN BED, PULLING AT LINES, AND TRYING TO UNSAFELY GET OUT OF BED. 0515: PATIENT CONTINUED TO BECOME MORE AGGITATED AND PARANOID ABOUT CARE BEING DONE AND USED HAND TO HIT THIS RN ACROSS RIGHT CHEEK WHILE THIS RN PROTECTED IV LINE. AIR HOSE COUPLER NASREEN TO BEDSIDE TO ASSIST THIS RN WITH REDIRECTION, CALL PLACED TO MD KIM FOR MEDICATION TO CALM PATIENT INCLUDING PO ZYPREXA AND IV PEPCID FOR RASH/COMFORT. 0525: ZYPREXA AND PEPCID GIVEN PER EMAR. PATIENT CONTINUED TO BECOME INCREASINGLY AGGITATED AND BEGAN YELLING. THIS RN CONTINUES TO REMAIN AT BEDSIDE. 0540: WILLIAN RIOS TO BEDSIDE TO ASSIST THIS RN WITH REDIRECTION AND HELP PUT FAN ON BACK FOR RASH THAT PATIENT CONTINUES TO SAY IS "HOT". PATIENT ATTEMPTED TO HIT WILLIAN RIOS. PATIENT NOT REDIRECTABLE AND SAID THAT HE WOULD "DO IT AGAIN". THIS RN ATTEMPTED REDIRECTION AND EDUCATION AGAIN WITH NO RESULTS. PATIENT BEGAN YELLING AND GRABBING LINES. SAT UP ON THE SIDE OF THE BED AND ATTEMPTED TO GET UP. AIR HOSE COUPLER NASREEN AT BEDSIDE AT THIS TIME TO ASSIST WITH REDIRECTION BEHAVIOR MODIFICATION. PATIENT CONTIUES TO TRY TO RAISE HANDS IN ATTEMPTS TO HIT STAFF. STIVEN HERNANDEZ CALLED AROUND 0545. STAFF TO ROOM TO ASSIST IN LAYING PATIENT BACK DOWN. SOFT BILAT WRIST RESTRAINTS QUICKLY OBTAINED AND PLACED AROUND 0550. PATIENT CONTINUES TO THRASH IN THE BED AND YELLS OUT FOR "911" UNABLE TO REDIRECT. 0556: CALL PLACED TO MD KIM REGARDING ESCALATION AND EVENTS WITH STAFF FOR ORDER FOR IV HALDOL AND ORDER FOR WRIST RESTRAINTS. ORDERS PLACED. PATIENT NOT ALLOWING THIS RN TO GIVE IV MEDS AND ATTEMPTING TO KICK THIS RN. AIR HOSE COUPLER NASREEN ASSISTING THIS RN FOR SAFETY TO PREVENT INJURY TO PATIENT OR STAFF. MEDICATED PER EMAR. MONITORING EQUIPMENT BEING PLACED BACK ON PATIENT D/T NEED FOR CONTINUOUS SPO2, CARDIAC, AND TEMPERATURE MONITORING. AT THAT TIME PATIENT KICKED THIS RN IN THE LEFT SIDE OF THE HEAD. MONITORING EQUIPMENT WAS FINISHED BEING PLACED AND STAFF REMAINED AWAY FROM BED TO REDUCE FURTHER INJURY TO STAFF. 0620: THIS RN REMAINED IN ROOM GIVING REASSURANCE TO PATIENT. PATIENT CONTINUES TO MOVE EXTREMETIES IN BED AND MOANING OUT. 1 ON 1 SITTER IN ROOM WITH PATIENT FOR SAFETY AND CONTINUED REDIRECTION. THIS RN NOTED THAT THE PATIENT'S RIGHT ELBOW AND SIDE RAIL HAD BLOOD ON IT; UNABLE TO ASSESS AT THIS TIME D/T PATIENT'S CONTINUED AGGITATION AND CONCERN FOR STAFF SAFETY. 0645: PATIENT'S VITALS STABLE AT THIS TIME. MONITORING EQUIPMENT IN PLACE. PATIENT CONTINUES TO MOVE ALL EXTREMETIES AND MOAN AND CALL OUT. 1 ON 1 SITTER REMAINS AT BEDSIDE. THIS RN WILL REPORT TO ONCOMING RN 0635
[2022-10-05 08:59] LABS: Base Excess Venous -0.3 mmol/L; Bicarbonate Venous 24.1 mmol/L (24.0-30.0); PCO2 Venous 44.7 mmHg (38-42); pH Blood Venous 7.36 (7.34-7.37)
[2022-10-05 12:17] LABS: PCO2 Arterial 46.4 mmHg (35-45); PO2 Arterial 59.6 mmHg (80-100); pH Blood Arterial 7.36 (7.35-7.45)
--- NOTE | 2022-10-05 13:21 | NUR ---
After multiple attempts to reach pt's s/o Rere, she retured the call, and this RN asked her to come to the hospital as soon as she is able. She asked if something is wrong, and I informed her that the pt is not doing very well. He is currently on bipap, with HR and blood pressure dropping. RT also present. Dr. Hester and this RN will meet with Rere as soon as she arrives.
[2022-10-05 13:28] LABS: Albumin, Blood 1.6 g/dL (3.4-5.0); Anion Gap 7 mmol/L (6-16); Blood Urea Nitrogen 67 mg/dL (8-24); Bun/Creatinine Ratio 18.1 (12.0-20.0); CO2, Blood 25 mmol/L (21-32); Chloride, Blood 110 mmol/L (98-108); Creatinine, Blood 3.71 mg/dL (0.60-1.20); Glomerular Filtration Rate 17 (60-); Glucose, Blood 119 mg/dL (70-99); Phosphorus, Blood 4.3 mg/dL (2.5-4.9); Potassium, Blood 4.4 mmol/L (3.5-5.5); Sodium, Blood 142 mmol/L (136-145)
--- NOTE | 2022-10-05 13:56 | NUR ---
PT'S S/O FABRIZIO AT BEDSIDE. PT'S VITAL SIGNS HAVE STABILIZED SOMEWHAT. FABRIZIO AGREES TO CHANGE PT'S CODE STATUS TO DNR, SHE DOES VERBALIZE UNDERSTANDING IT WOULD HAVE A MORE NEGATIVE IMPACT THAN POSITIVE ON PT'S SURVIVAL. DR. PIERCE AT BEDSIDE TALKING TO FABRIZIO.
--- NOTE | 2022-10-05 16:15 | NUR ---
1145: THIS RN AND PCT LAN REPOSITIONED PT AND PROVIDED ROM AND REPALCED RESTRAINTS. PT AWOKE TO VERBAL STIMULI, RESPONDED TO NAME WHEN CALLED. VSS. SPO2 GREATER THAN 95% ON 3L NASAL CANNULA. THIS RN LEFT ROOM AFTER REPOSITIONING AND ROM LAN PCT REMAINED IN ROOM 1:1 SITTER. 1155: THIS RN RETURNED TO ROOM FOR BLOOD SUGAR CHECK. PT SUDDENLY WITH COARSE LUNG SOUNDS. ORAL SUCTIONING PEFORMED, THERE WAS NOTHING TO SUCTION FROM ORAL AIRWAY. IT WAS NOTED THAT PT NOW HAS NO GAG REFLEX THIS RN PERFORMS SUCTIONING. TALEND ETL DEVELOPER EMMANUEL CALLED TO ROOM, DR PIERCE CALLED TO ROOM. PT WAS PLACED ON BIPAP PER V/O FROM DR PIERCE FOR COARSE LUNG SOUNDS, RESTRAINTS ARE REMOVED AT THIS TIME PT IS BEING PLACED ON BIPAP. PT IS NONRESPONSIVE TO ANY STIMULI AT THIS TIME. ALTHOUGH HIS VITALS WERE STABLE AT THIS TIME. MULITPLE NEW ORDERS OBTAINED. PALLIATIVE CARE IS CALLED TO CONTACT PT'S POA. 1242: PT BECOMING HYPOTENSIVE AT THIS TIME, HR HAS TRENDED DOWN INTO THE 50s. ICU TALEND ETL DEVELOPER CALLED TO ASSESS PT, DR GARCIA RETURNS TO SEE PT. PT REMAINS FULL CODE AT THIS TIME, DECISION WAS MADE TO SEND TO TRANSFER TO TO ICU. 1320: FLUID BOLUS INFUSING AT THIS TIME. VITALS ARE HOLDING STABLE AT THIS TIME. WILL HOLD OFF ON TRANSFER TO ICU AT THIS TIME, WILL CONTINUE TO MONITOR PT CLOSELY. S/O IS ON HER WAY TO SEE PT. 1355: S/O HAS ARRIVED, SHE HAS MADE THE DECISION TO CHANGE PT TO DNR, S/O HAS RETURNED HOME TO RETRIEVE PT'S SON SHE WISHES TO MOVE FORWARD WITH PLACING PT ON COMFORT CARE. PT'S VSS AT THIS TIME. PT CONTINUES REMAINS WITH MINIMAL RESPONSE TO ANY STIMULI. 1544: PT MEDICATED FOR COMFORT, WILL PLAN TO REMOVE PT FROM BIPAP AND PLACE ON NASAL CANNULA SHORTLY. FAMILY IS PRESENT IN ROOM. 1550: BIPAP REMOVED, PT PLACED ON NASAL CANNULA. PT WITH VERY SHALLOW IRREGULAR RESPIRATIONS. FAMILY IS THOROUGHLY EDUCATED. COMFORT CART IN ROOM.
--- NOTE | 2022-10-06 06:08 | NUR ---
SHIFT SUMMARY PATIENT ALERT AND ORIENTED TO SELF. MEDICATED TWICE PER EMAR FOR PAIN. PATIENT SLEPT MOST OF THE NIGHT. WHEN HE WOKE UP HE WAS ALERT AND ABLE TO FOLLOW DIRECTIONS. NO ACUTE ISSUES NOTED OVERNIGHT. CALL LIGHT WITHIN REACH.
--- NOTE | 2022-10-06 11:58 | NUR ---
TRANSFER NOTE COMFORT CARE. PATIENT ASLEEP AND DOES NOT RESPOND TO VERBAL STIMULI. NOTED TO BE RESTLESS WITH FREQUENT MOVEMENT AT START OF SHIFT. MEDICATED PER EMAR. RESTING PEACEFULLY FOR REST OF AM. TURNS AND REPOSITIONS SELF FREQUENTLY. 2L O2 VIA NC FOR COMFORT. SKIN COVERED IN RASH AT VARIOUS STAGES OF HEALING. PARTICULARLY RED AND INFLAMED ACROSS LEFT SIDE AND FLANK. ATTENDS IN PLACE AND DRY. PATIENT'S FAMILY MEMBER ATTENTIVE AT BEDSIDE THROUGHOUT AM. REPORT GIVEN TO DANIELLE KIRKPATRICK RN ON MED FLOOR. PATIENT TRANSPORTED IN BED TO ROOM 341 AT 1145.
--- NOTE | 2022-10-06 17:57 | NUR ---
SHIFT SUMMARY- PT TRANSFERED FROM PCU THIS AFTERNOON. HE SLEPT FOR THE DURATION OF THIS SHIFT. FAMILY AT BEDSIDE. OPENED HIS EYES ONCE. HIS BED IS IN THE LOW POSITION AND CALL LIGHT IS WITHIN REACH.
--- NOTE | 2022-10-06 18:21 | NUR ---
pt comfortable looks to be transitioning. daughter at bedside. She is grieving, theraputic time with her reviewing the process and his medical history. She left her number to call if he passes.
--- NOTE | 2022-10-07 04:52 | NUR ---
PAINT MIXER SUMMARY/COMFORT CARE PT HAS BEEN SLEEPING T/O MOST OF THE SHIFT WITH BRIEF PERIODS OF ALERTNESS--USUALLY WHEN IN ACUTE PAIN AND DURING DIRECT CARE. PT IS NON VERBAL BUT WOULD SQUEEZE THIS NURSE'S HAND TO RESPOND TO YES/NO QUESTIONS. MED P/EMAR F/PAIN. PT EX- AT BEDSIDE UNTIL NEWS AGENT. PT HAS RED INFLAMMED RASH ON POSTERIOR/ANTERIOR TRUNK/CHEST. NYSTATIN CREAM APPLIED; PT RESPONDED PAINFULLY. LEFT FLANK AREA MORE PAINFUL AND WEEPING. PT VERY PAINFULL WITH MOVEMENT. PREMED AND POSTMED AFTER BED CHANGE. CALL LIGHT ACCESSIBLE. CONT W/Q4 COMFORT ASSESSMENTS T/O SHIFT AND FREQUENT ROUNDING.
--- NOTE | 2022-10-07 11:55 | NUR ---
Comfort care visit: Kelton is alone in his room this morning. He is snoring soundly when this medical technical writer entered his room. He did not awaken nor stir at all when his name was spoken or when this medical technical writer touched his arm. He does not appear to be in any pain. His skin is cool to touch. Repositioned a pillow under his left knee to relieve pressure between his knees. PC to continue to follow.
--- NOTE | 2022-10-07 17:19 | NUR ---
PT CEASED RR AT 1705. VERIFIED NO HEART SOUNDS WITH GENIE Peterson RN. DR. AMEZQUITA NOTIFIED OF TOD. POST MORTEM CARE COMPLETED. PT FAMILY PRESENT AT [facility]. PT APPEARS PEACEFUL. FAMILY STATES TO CALL [facility] IN [place] WHEN THEY LEAVE.
== END 2022-10-07 17:05 | DRG 260 ==
LOC: ER 12:01 → ICUW 12:02 → MEDS 13:09 → ICUE 13:09 → ICUW 13:09 → ICUE 13:20 → MEDS 09-24 15:41 → PCU 10-04 17:30 → MEDS 10-06 11:41
PROVIDERS: Emergency Medicine; Family Medicine; Internal Medicine; Internal Medicine Critical Care Medicine; Internal Medicine Nephrology; Orthopaedic Surgery; ADMIT Internal Medicine
PROC: 3E033XZ Introduction of Vasopressor into Peripheral Vein, Percutaneous Approach (ICD-10-PCS; principal; 2022-09-17)
PROC: 0BH18EZ Insertion of Endotracheal Airway into Trachea, Via Natural or Artificial Opening Endoscopic (ICD-10-PCS; 2022-09-17)
PROC: 5A1223Z Performance of Cardiac Pacing, Continuous (ICD-10-PCS; 2022-09-17)
PROC: 5A1945Z Respiratory Ventilation, 24-96 Consecutive Hours (ICD-10-PCS; 2022-09-17)
PROC: 02HK3MZ Insertion of Cardiac Lead into Right Ventricle, Percutaneous Approach (ICD-10-PCS; 2022-09-17)
PROC: 5A09457 Assistance with Respiratory Ventilation, 24-96 Consecutive Hours, Continuous Positive Airway Pressure (ICD-10-PCS; 2022-09-17)
PROC: 0DH67UZ Insertion of Feeding Device into Stomach, Via Natural or Artificial Opening (ICD-10-PCS; 2022-09-18)
PROC: 3E0G76Z Introduction of Nutritional Substance into Upper GI, Via Natural or Artificial Opening (ICD-10-PCS; 2022-09-18)
PROC: 02HV33Z Insertion of Infusion Device into Superior Vena Cava, Percutaneous Approach (ICD-10-PCS; 2022-09-18)
PROC: 4A033R1 Measurement of Arterial Saturation, Peripheral, Percutaneous Approach (ICD-10-PCS; 2022-09-18)
PROC: 0T9B70Z Drainage of Bladder with Drainage Device, Via Natural or Artificial Opening (ICD-10-PCS; 2022-09-18)
PROC: 5A1D70Z Performance of Urinary Filtration, Intermittent, Less than 6 Hours Per Day (ICD-10-PCS; 2022-10-01)
PROC: 0S9D3ZX Drainage of Left Knee Joint, Percutaneous Approach, Diagnostic (ICD-10-PCS; 2022-10-02)
DX: I49.8 Other specified cardiac arrhythmias (principal); G92.8 Other toxic encephalopathy; I50.23 Acute on chronic systolic (congestive) heart failure; J96.01 Acute respiratory failure with hypoxia; J96.02 Acute respiratory failure with hypercapnia; I63.511 Cerebral infarction due to unspecified occlusion or stenosis of right middle cerebral artery; N17.9 Acute kidney failure, unspecified; E87.1 Hypo-osmolality and hyponatremia; I13.0 Hypertensive heart and chronic kidney disease with heart failure and stage 1 through stage 4 chronic kidney disease, or unspecified chronic kidney disease; M86.671 Other chronic osteomyelitis, right ankle and foot; E87.20 Acidosis, unspecified; Z20.822 Contact with and (suspected) exposure to COVID-19; Z51.5 Encounter for palliative care; Z66 Do not resuscitate; Z91.14 Patient's other noncompliance with medication regimen; E11.22 Type 2 diabetes mellitus with diabetic chronic kidney disease; E87.5 Hyperkalemia; E78.5 Hyperlipidemia, unspecified; F17.210 Nicotine dependence, cigarettes, uncomplicated; E03.9 Hypothyroidism, unspecified; N18.30 Chronic kidney disease, stage 3 unspecified; L27.0 Generalized skin eruption due to drugs and medicaments taken internally; K64.8 Other hemorrhoids; R56.9 Unspecified convulsions; E83.39 Other disorders of phosphorus metabolism; R13.10 Dysphagia, unspecified; F15.10 Other stimulant abuse, uncomplicated; T50.996A Underdosing of other drugs, medicaments and biological substances, initial encounter; M25.462 Effusion, left knee; D63.1 Anemia in chronic kidney disease; E11.40 Type 2 diabetes mellitus with diabetic neuropathy, unspecified; R57.0 Cardiogenic shock; E11.649 Type 2 diabetes mellitus with hypoglycemia without coma; Z86.73 Personal history of transient ischemic attack (TIA), and cerebral infarction without residual deficits; Z98.52 Vasectomy status; Z90.89 Acquired absence of other organs; Z98.890 Other specified postprocedural states; Z89.432 Acquired absence of left foot; Z79.2 Long term (current) use of antibiotics; Z79.01 Long term (current) use of anticoagulants; Z79.82 Long term (current) use of aspirin; Z79.84 Long term (current) use of oral hypoglycemic drugs; Z79.899 Other long term (current) drug therapy
CPT/HCPCS: 0241U; 31500; 33210; 36415; 36416; 36569; 36600; 51702; 51703; 70450; 71045; 73560-LT; 73630; 76770; 76937; 80047; 80048; 80053; 80069; 80202; 81001; 82140; 82533; 82803; 82947; 83605; 83735; 83880; 84100; 84132; 84443; 84484; 85014; 85025; 85027; 87040; 87070; 87075; 87086; 87106; 87205; 89051; 92526; 92610; 93005; 93010; 93308; 93321; 94002; 94003; 94660; 94760; 94762; 96374; 96375; 97110; 97162; 97166; 97530; 99291-25; A9270; C1751; C1769; C1894; C9113; J0461; J0692; J1200; J1610; J1630; J1644; J1815; J1940; J2060; J2185; J2250; J2270; J2704; J2920; J2997; J3010; J3370; J3475; J7030; J7040; J7050; J7060; J7070